=== PATIENT | female | born 1980 | race Caucasian/White ===

== ENCOUNTER 2016-06-01 11:38 | Emergency (ER) | payer OTHER ==
[~2016-06-01] VITALS: Ht 154.9 cm; Wt 68.0 kg
[~2016-06-01 11:38] MED LIST: ACET-2267 PO; AMOX-358 PO; DOCU-143 PO; DOXY100C2 PO; FAMO-119 PO; HYDR-34 PO; HYDR-3812 PO; HYDR1TAB PO; HYDROCODON PO; HYOS0.1281 PO; IBUP-2055 PO; IBUPROFEN PO; LISI-552 PO; LISI20TA PO; NAPR-243 PO; NAPR550T PO; ONDAN4ODT PO; PANT40TA2 PO; PANT40TA3 PO; PENI500T PO; PNT40TEC PO; SUCR1TAB PO; SUCR1TAB36 PO; SULF1TAB38 PO; TRAM50TA2 PO; TRM50T PO
[2016-06-01] MEDS ORDERED: OMEP20CA12 PO (12:07)
[2016-06-01] MEDS ORDERED: ONDANSETRON 4 MG (ZOFRAN) ORAL DISSOLVE TAB ONE (12:15)
[2016-06-01] MEDS ORDERED: ONDANSETRON 8 MG (ZOFRAN) ORAL DISSOLVE TAB PO ONE (12:30)
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
[2016-06-01] MEDS ORDERED: AUGMENTIN 875 MG TAB (AMOXICILLIN/CLAVULANATE) PO SCH (13:00)
[2016-06-01] MEDS ORDERED: LIDOCAINE 2% 20 ML (XYLOCAINE) VIAL INJ ONE (13:00)
[2016-06-01] MEDS ORDERED: TRIM/SULFAMETH 160/800 (SEPTRA DS) TAB PO ONE (13:00)
[2016-06-01] MEDS ORDERED: HYDROcodone/APAP 5 MG/325 MG (LORTAB) TAB PO ONE (13:00)
[2016-06-01] MEDS ORDERED: SULF1TAB35 PO (13:09)
[2016-06-01] MEDS ORDERED: HYDR-757 PO (13:09)
[2016-06-01] MEDS ORDERED: AMOX500C2 PO (13:09)
[2016-06-01 13:10] VITALS: BP 128/66
[2016-06-02] MEDS ORDERED: AMOX500C2 PO (10:23)
[2016-06-02] MEDS ORDERED: LISI1TAB6 PO (10:23)
[2016-06-02] MEDS ORDERED: OMEP20TA7 PO (10:23)
[2016-06-02] MEDS ORDERED: ACET-93 PO (10:23)
[2016-06-02] MEDS ORDERED: SULF1TAB35 PO (10:23)
[2016-06-02] MEDS ORDERED: IBUP-2055 PO (10:23)
== END 2016-06-01 13:10 | disposition home or self-care (01) ==
LOC: EDUNIT# 11:38 → ER 11:40
DX: N76.2 Acute vulvitis (principal); I10 Essential (primary) hypertension; F17.210 Nicotine dependence, cigarettes, uncomplicated; Z79.899 Other long term (current) drug therapy
CPT/HCPCS: 99283

== ENCOUNTER 2016-06-02 06:54 | Inpatient (IN) | payer OTHER ==
[~2016-06-02] VITALS: Ht 154.9 cm; Wt 73.0 kg
[~2016-06-02 06:54] MED LIST changes: +AMOX500C2 PO; +HYDR-757 PO; +OMEP20CA12 PO; +SULF1TAB35 PO
[2016-06-02] MEDS ORDERED: KETOROLAC 30 MG/ML VIAL IVP STA (07:16)
[2016-06-02] MEDS ORDERED: fentaNYL INJECTION 100 MCG/2 ML AMP IVP STA (07:16)
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
[2016-06-02 07:50] LABS: BASOPHILS % (AUTO) 0 % (0-10); EOSINOPHILS # (AUTO) 0.2 10^3/uL (0.0-0.3); EOSINOPHILS % (AUTO) 1 % (0-10); LYMPHOCYTES % (AUTO) 10 % (12-44); MEAN CORPUSCULAR HEMOGLOBIN 26 PG (25-34); MEAN CORPUSCULAR HGB CONC 34 G/DL (32-36); MEAN CORPUSCULAR VOLUME 78 FL (80-99); MEAN PLATELET VOLUME 8.1 FL (7.4-10.4); MONOCYTES # (AUTO) 2.2 X 10^3 (0.0-1.0); MONOCYTES % (AUTO) 11 % (0-12); NEUTROPHILS # (AUTO) 16.2 X 10^3 (1.8-7.8); NEUTROPHILS % (AUTO) 79 % (42-75); PLATELET COUNT 360 10^3/uL (130-400); RED BLOOD COUNT 3.53 10^6/uL (4.35-5.85); RED CELL DISTRIBUTION WIDTH 14.7 % (10.0-14.5); WHITE BLOOD COUNT 20.6 10^3/uL (4.3-11.0)
[2016-06-02] MEDS ORDERED: HYDROmorphone (DILAUDID) 2 MG/ML VIAL IVP STA (08:10)
[2016-06-02 08:12] LABS: BAND NEUTROPHILS 5 %; LYMPHOCYTES % (MANUAL) 11 %; NEUTROPHILS % (MANUAL) 76 %
[2016-06-02 08:21] LABS: ALANINE AMINOTRANSFERASE 51 U/L (0-55); ALBUMIN 3.8 G/DL (3.2-4.5); ANION GAP 11 MMOL/L (5-14); ASPARTATE AMINO TRANSFERASE 28 U/L (5-34); BILIRUBIN,TOTAL 0.2 MG/DL (0.1-1.0); BLOOD UREA NITROGEN 23 MG/DL (7-18); BUN/CREATININE RATIO 27; CALCIUM 8.8 MG/DL (8.5-10.1); CARBON DIOXIDE 17 MMOL/L (21-32); CHLORIDE 104 MMOL/L (98-107); CREATININE SERUM 0.85 MG/DL (0.60-1.30); GFR ESTIMATED > 60; GLUCOSE 101 MG/DL (70-105); POTASSIUM 3.8 MMOL/L (3.6-5.0); SODIUM 132 MMOL/L (135-145); TOTAL PROTEIN 7.2 G/DL (6.4-8.2)
[2016-06-02 08:39] LABS: KETONES,URINE NEGATIVE (NEGATIVE); LEUKOCYTE ESTERASE ,URINE 2+ (NEGATIVE); NITRITE,URINE NEGATIVE (NEGATIVE); PH,URINE 8 (5-9); PROTEIN,URINE NEGATIVE (NEGATIVE); UROBILINOGEN,URINE 1 MG/DL (NORMAL)
[2016-06-02] MEDS ORDERED: cefTRIAXone INJECTION 1,000 MG in NORMAL SALINE (BAXTER MINI) 50 ML IV ONE (08:45)
[2016-06-02 09:04] LABS: BILIRUBIN,URINE 1+ (NEGATIVE); TRICHOMONAS,URINE MODERATE /HPF
[2016-06-02] MEDS ORDERED: NS IV 1000 ML 1,000 ML IV ONE (09:23)
[2016-06-02] MEDS ORDERED: metroNIDAZOLE 500 MG (FLAGYL) TAB PO ONE (10:00)
[2016-06-02 10:15] VITALS: BP 95/54
[2016-06-02] MEDS ORDERED: metroNIDAZOLE 500 MG (FLAGYL) TAB PO NR (10:15)
[2016-06-02] MEDS ORDERED: VANCOMYCIN 1500 MG/NS 500 ML IVPB IV NR ×2 (10:21)
[2016-06-02] MEDS ORDERED: OMEP20TA7 PO (10:23)
[2016-06-02] MEDS ORDERED: SULF1TAB35 PO (10:23)
[2016-06-02] MEDS ORDERED: ACET-93 PO (10:23)
[2016-06-02] MEDS ORDERED: AMOX500C2 PO (10:23)
[2016-06-02] MEDS ORDERED: IBUP-2055 PO (10:23)
[2016-06-02] MEDS ORDERED: LISI1TAB6 PO (10:23)
--- NOTE | 2016-06-02 10:34 | History & Physicial (CHS) ---
HPI History of Present Illness: This is a 35 yo female who reports that she noticed a lump in the L labia on . Prior to that she had shaved near the urethral opening. When she noticed the lump she attempted to squeeze it and felt as if it "popped on the inside". She denies any drainage. She was seen in the ER yesterday with mild edema to the L labia and was given an rx for Bactrim, she was not able to start them until today and has had signficiant increase in erythema and swelling of the L labia now up into the mons and L groin. Pt reports fever at home as well as onset of nausea for the past day. Pt has hx of IVDU and has poor venous access. Pt noted to have Trich on UA. Source: patient Date seen by provider: Jun 02, 2016 Time seen by provider: 10:00 Attending Physician Robson Oneal DO PCP [place],[facility] Date of Admission Jun 02, 2016 at 09:29 Home Medications Home Medications Reviewed patient Home Medication Reconciliation Form Allergies Coded Allergies: No Known Drug Allergies (Verified , 09/02/15) FPC-Fneinw-Nwhptg Hx Patient Social History Alcohol Use: Denies Use Recreational Drug Use: Yes (OXY AND MORPHINE) Drug of Choice: OXY, MORPHINE AND PERCOCET Smoking Status: Current Everyday Smoker Type Used: Cigarettes Recent Foreign Travel: No Contact w/other who traveled: No Recent Infectious Disease Expo: No Physical Abuse Screen: No Sexual Abuse: No Immunizations Up To Date Tetanus Booster (TDap): More than 5yrs Past Medical History PMHx: Hypothyroidism Hypertension Polysubstance abuse Hepatitis C PSurgHx: Partial thyroidectomy Exploratory laparotomy with repair of gastric perforation Family Medical History Family History: Arthritis 19 MOTHER Cardiovascular disease 19 FATHER Congenital disease G8 SISTER Diabetes mellitus 19 MOTHER Hypertension 19 FATHER Seizure disorder G8 SISTER Review of Systems (CHC) Constitutional: see HPI All Other Systems Reviewed Negative Unless Noted: Yes Reviewed Test Results Reviewed Test Results Lab Laboratory Tests 06/02/16 07:40: Alanine Aminotransferase (ALT/SGPT) 51, Albumin 3.8, Alkaline Phosphatase 79, Anion Gap 11, Aspartate Amino Transf (AST/SGOT) 28, BUN/Creatinine Ratio 27, Band Neutrophils 5, Basophils # (Auto) 0.0, Basophils (%) (Auto) 0, Blood Morphology Comment NORMAL, Blood Urea Nitrogen 23H, Calcium Level 8.8, Carbon Dioxide Level 17L, Chloride Level 104, Creatinine 0.85, Eosinophils # (Auto) 0.2 , Eosinophils (%) (Auto) 1, Estimat Glomerular Filtration Rate > 60, Glucose Level 101, Hematocrit 28L, Hemoglobin 9.2L, Lymphocytes # (Auto) 2.0, Lymphocytes % (Manual) 11, Lymphocytes (%) (Auto) 10L, Mean Corpuscular Hemoglobin 26, Mean Corpuscular Hemoglobin Concent 34, Mean Corpuscular Volume 78L, Mean Platelet Volume 8.1, Monocytes # (Auto) 2.2H, Monocytes % (Manual) 8, Monocytes (%) (Auto) 11, Neutrophils # (Auto) 16.2H, Neutrophils % (Manual) 76, Neutrophils (%) (Auto) 79H, Platelet Count 360, Potassium Level 3.8, Red Blood Count 3.53L, Red Cell Distribution Width 14.7H, Sodium Level 132L, Total Bilirubin 0.2, Total Protein 7.2, White Blood Count 20.6H 06/02/16 08:25: Urine Bacteria TRACE, Urine Bilirubin 1+H, Urine Casts NONE, Urine Clarity CLEAR , Urine Color YELLOW, Urine Crystals NONE, Urine Culture Indicated NO, Urine Glucose (UA) NEGATIVE, Urine Ketones NEGATIVE, Urine Leukocyte Esterase 2+H, Urine Mucus NEGATIVE, Urine Nitrite NEGATIVE, Urine Protein NEGATIVE, Urine RBC NONE, Urine RBC (Auto) 1+H, Urine Specific [place] 1.010L, Urine Squamous Epithelial Cells 5-10, Urine Trichomonas MODERATEH, Urine Urobilinogen 1, Urine WBC 2-5, Urine pH 8 06/02/16 08:53: Lactic Acid Level 0.9 Physical Exam-([facility]) Physical Exam Vital Signs VS - Last 72 Hours, by Label 06/02/16 06/02/16 06/02/16 06/02/16 07:16 07:41 07:41 08:27 Temp 99.1 99.1 99.1 99.1 Pulse 117 Resp 18 B/P 118/75 Pulse Ox 98 Capillary Refill : Less Than 3 Seconds General Appearance: WD/WN no apparent distress Respiratory: lungs clear Cardiovascular: regular rate, rhythm Gastrointestinal: non tender soft Genital/Rectal: other (significant swelling and induration noted to the L labia, mild swelling to the R labia, swelling and induration extends into the mons and L inguinal area; no area of fluctuance or lesion noted, no significant swelling into the vagina noted) Assessment/Plan Assessment/Plan Plan see plan under problems Diagnosis/Problems: (1) Cellulitis of labia majora Assessment & Plan: ADM 06/02/15 - start IV Vancomycin, needs PICC line due to poor venous access - will obtain CT of the pelvis to eval for drainable abscess and consult Nurse Discharge if needed for I&D (2) Sepsis Qualifiers: Qualified Code: A41.9 - Sepsis, unspecified organism Assessment & Plan: Meets sepsis criteria w/ leukocytosis, tachycardia and recent fever - lactic acid 0.9 - blood cultures pending (3) Trichomoniasis, urogenital Assessment & Plan: Noted in urine - tx w/ Flagyl 2000mg po x1 ROBSON ONEAL DO Jun 02, 2016 10:34
[2016-06-02] MEDS ORDERED: FLU TRIvalent (5 YOA+) 2016-17 (AFLURIA) 0.5 ML IM ONE (11:00)
[2016-06-02] MEDS: fentaNYL INJECTION 100 MCG/2 ML AMP IVP PRN ×5 (11:01→23:21)
[2016-06-02] MEDS: NS IV 1000 ML 1,000 ML IV SCH ×3 (11:04→23:20)
[2016-06-02 12:00] VITALS: BP 90/55
--- NOTE | 2016-06-02 12:49 | Diagnostic Imaging Report ---
INDICATION: PICC line placement. Portable chest 12:37 PM. Right upper extremity PICC line tip projects over the SVC. Heart size and pulmonary vascularity are normal. Lungs are clear. There are no effusions or pneumothoraces. IMPRESSION: No acute abnormalities in the chest. Dictated by: Dictated on workstation # [id number]
[2016-06-02] MEDS ORDERED: NS 100 ML (IVPB) BAG IV ONE (13:15)
[2016-06-02] MEDS ORDERED: IOHEXOL 350 MG/ML 100 ML (OMNIPAQUE 350) VIAL IV ONE (13:15)
[2016-06-02] MEDS: ACETAMINOPHEN 500 MG TAB (TYLENOL) PO PRN ×2 (14:18→23:20)
--- NOTE | 2016-06-02 14:22 | Diagnostic Imaging Report ---
PROCEDURE: CT pelvis with contrast. TECHNIQUE: Oral and intravenous contrast were administered with pelvic CT performed. INDICATION: Labial cellulitis. EXAM: CT pelvis with contrast. FINDINGS: There is edema in the subcutaneous fat in the mons pubis extending into the left labial region. There are small inguinal reactive lymph nodes bilaterally. There is no discrete abscess seen. The urinary bladder is distended. The uterus is not enlarged. It is mildly displaced to the left by the distended bladder. There is a trace amount of free fluid in the cul-de-sac. IMPRESSION: Cellulitis in the left labial and mons pubis regions of the pelvis with adjacent reactive lymphadenopathy. No evidence for abscess. Dictated by: Dictated on workstation # [id number]
[2016-06-02 15:45] VITALS: BP 100/66
[2016-06-02] MEDS: NICOTINE 14 MG (NICODERM) PATCH TD SCH (17:04)
[2016-06-02 19:54] VITALS: BP 102/59
[2016-06-02] MEDS: IBUPROFEN 600 MG (MOTRIN) TAB PO PRN (20:01)
[2016-06-02] MEDS: ONDANSETRON 4 MG/2 ML (SDV) Z0FRAN IVP PRN (22:10)
[2016-06-02] MEDS: VANCOMYCIN IV ADD-VANTAGE 1,000 MG in SODIUM CHLORIDE (ADD-VANTAGE) 250 ML IV SCH (23:15)
[2016-06-03] VITALS: BP 94/57
[2016-06-03] MEDS: fentaNYL INJECTION 100 MCG/2 ML AMP IVP PRN ×9 (01:54→22:30)
[2016-06-03 04:00] VITALS: BP 98/62
[2016-06-03] MEDS: IBUPROFEN 600 MG (MOTRIN) TAB PO PRN ×2 (04:55→21:07)
[2016-06-03 05:26] LABS: BASOPHILS % (AUTO) 0 % (0-10); EOSINOPHILS # (AUTO) 0.4 10^3/uL (0.0-0.3); EOSINOPHILS % (AUTO) 3 % (0-10); LYMPHOCYTES % (AUTO) 17 % (12-44); MEAN CORPUSCULAR HEMOGLOBIN 26 PG (25-34); MEAN CORPUSCULAR HGB CONC 33 G/DL (32-36); MEAN CORPUSCULAR VOLUME 79 FL (80-99); MEAN PLATELET VOLUME 8.5 FL (7.4-10.4); MONOCYTES # (AUTO) 1.1 X 10^3 (0.0-1.0); MONOCYTES % (AUTO) 10 % (0-12); NEUTROPHILS # (AUTO) 7.9 X 10^3 (1.8-7.8); NEUTROPHILS % (AUTO) 70 % (42-75); PLATELET COUNT 276 10^3/uL (130-400); RED BLOOD COUNT 3.03 10^6/uL (4.35-5.85); RED CELL DISTRIBUTION WIDTH 14.8 % (10.0-14.5); WHITE BLOOD COUNT 11.3 10^3/uL (4.3-11.0)
[2016-06-03 05:45] LABS: ALANINE AMINOTRANSFERASE 34 U/L (0-55); ALBUMIN 2.9 G/DL (3.2-4.5); ANION GAP 5 MMOL/L (5-14); ASPARTATE AMINO TRANSFERASE 20 U/L (5-34); BILIRUBIN,TOTAL < 0.1 MG/DL (0.1-1.0); BLOOD UREA NITROGEN 19 MG/DL (7-18); BUN/CREATININE RATIO 24; CARBON DIOXIDE 19 MMOL/L (21-32); CHLORIDE 112 MMOL/L (98-107); CREATININE SERUM 0.79 MG/DL (0.60-1.30); GFR ESTIMATED > 60; GLUCOSE 88 MG/DL (70-105); SODIUM 136 MMOL/L (135-145); TOTAL PROTEIN 5.5 G/DL (6.4-8.2)
[2016-06-03 06:00] LABS: ANISOCYTOSIS SLIGHT; BAND NEUTROPHILS 0 %; BASOPHILS % (MANUAL) 0 %; EOSINOPHILS % (MANUAL) 0 %; HYPOCHROMASIA SLIGHT; LYMPHOCYTES % (MANUAL) 20 %; MICROCYTOSIS SLIGHT; NEUTROPHILS % (MANUAL) 74 %
[2016-06-03] MEDS: NS IV 1000 ML 1,000 ML IV SCH ×3 (07:00→21:57)
[2016-06-03] MEDS: NICOTINE 14 MG (NICODERM) PATCH TD SCH (08:09)
[2016-06-03] MEDS: NICOTINE PATCH REMOVAL TP SCH (08:09)
[2016-06-03] MEDS: ONDANSETRON 4 MG/2 ML (SDV) Z0FRAN IVP PRN ×2 (08:17→21:07)
[2016-06-03 08:33] VITALS: BP 100/58
[2016-06-03] MEDS: ACETAMINOPHEN 500 MG TAB (TYLENOL) PO PRN (11:34)
[2016-06-03] MEDS: VANCOMYCIN IV ADD-VANTAGE 1,000 MG in SODIUM CHLORIDE (ADD-VANTAGE) 250 ML IV SCH ×2 (12:15→23:03)
--- NOTE | 2016-06-03 12:37 | Progress Note (SOAP) ---
Subjective Subjective/Events-last exam No fever since admission, wbc improved. Pt feels swelling is mildly worse. Date seen by provider: Jun 03, 2016 Time seen by provider: 12:24 Objective Exam Last Set of Vital Signs Vital Signs Date Time Temp Pulse Resp B/P Pulse Ox O2 Delivery O2 Flow Rate FiO2 06/03/16 10:40 96.4 06/03/16 08:33 92 20 100/58 98 Room Air Capillary Refill : Less Than 3 Seconds I&O Bad tableGeneral: Alert, Oriented X3, Cooperative Neuro: Other (no significant change, margin of erythema extending slightly beyond marked borders) Results/Procedures Lab Laboratory Tests 06/03/16 05:00: Alanine Aminotransferase (ALT/SGPT) 34, Albumin 2.9L, Alkaline Phosphatase 74, Anion Gap 5, Anisocytosis SLIGHT, Aspartate Amino Transf (AST/SGOT) 20, BUN/ Creatinine Ratio 24, Band Neutrophils 0, Basophils # (Auto) 0.0, Basophils % ( Manual) 0, Basophils (%) (Auto) 0, Blood Urea Nitrogen 19H, Calcium Level 8.0L, Carbon Dioxide Level 19L, Chloride Level 112H, Creatinine 0.79, Eosinophils # ( Auto) 0.4H, Eosinophils % (Manual) 0, Eosinophils (%) (Auto) 3, Estimat Glomerular Filtration Rate > 60, Glucose Level 88, Hematocrit 24L, Hemoglobin 7.8L, Hypochromasia SLIGHT, Lymphocytes # (Auto) 2.0, Lymphocytes % (Manual) 20 , Lymphocytes (%) (Auto) 17, Mean Corpuscular Hemoglobin 26, Mean Corpuscular Hemoglobin Concent 33, Mean Corpuscular Volume 79L, Mean Platelet Volume 8.5, Microcytosis SLIGHT, Monocytes # (Auto) 1.1H, Monocytes % (Manual) 6, Monocytes (%) (Auto) 10, Neutrophils # (Auto) 7.9H, Neutrophils % (Manual) 74, Neutrophils (%) (Auto) 70, Platelet Count 276, Potassium Level 4.0, Red Blood Count 3.03L, Red Cell Distribution Width 14.8H, Sodium Level 136, Total Bilirubin < 0.1L, Total Protein 5.5L, White Blood Count 11.3H Assessment/Plan Assessment/Plan Plan see plan under problems Diagnosis/Problems: (1) Cellulitis of labia majora Assessment & Plan: ADM 06/02/15 - start IV Vancomycin, needs PICC line due to poor venous access - will obtain CT of the pelvis to eval for drainable abscess and consult Certified Nuclear Medicine Technologist if needed for I&D 06/03 - wbc improved to 11.3, afebrile, no evidence of abscess on CT - continue Vanc (2) Sepsis Qualifiers: Qualified Code: A41.9 - Sepsis, unspecified organism Assessment & Plan: Meets sepsis criteria w/ leukocytosis, tachycardia and recent fever - lactic acid 0.9 - blood cultures pending Improved (3) Trichomoniasis, urogenital Assessment & Plan: Noted in urine - tx w/ Flagyl 2000mg po x1 (4) Anemia Qualifiers: Qualified Code: D50.9 - Iron deficiency anemia, unspecified Assessment & Plan: Microcytic c/w iron deficiency 06/03 - start ferrous sulfate 325mg BID Clinical Quality Measures DVT/VTE Risk/Contraindication: Risk Factor Score Per Nursin RFS Level Per Nursing on Admit: 1=Low/No VTE PPX ROBSON ONEAL DO Jun 03, 2016 12:37
[2016-06-03 12:46] VITALS: BP 103/62
[2016-06-03] MEDS: HYDROcodone/APAP 5 MG/325 MG (LORTAB) TAB PO PRN ×3 (14:07→22:31)
[2016-06-03 16:00] VITALS: BP 105/62
[2016-06-03] MEDS: FERROUS SULF 325 MG (IRON) TAB PO SCH (17:39)
[2016-06-03 20:00] VITALS: BP 103/63
[2016-06-04] VITALS: BP 102/67
[2016-06-04 04:00] VITALS: BP 103/56
[2016-06-04] MEDS: HYDROcodone/APAP 5 MG/325 MG (LORTAB) TAB PO PRN ×3 (04:27→20:07)
[2016-06-04] MEDS: fentaNYL INJECTION 100 MCG/2 ML AMP IVP PRN ×6 (04:27→21:38)
[2016-06-04 05:42] LABS: BASOPHILS % (AUTO) 0 % (0-10); EOSINOPHILS # (AUTO) 0.5 10^3/uL (0.0-0.3); EOSINOPHILS % (AUTO) 5 % (0-10); LYMPHOCYTES # (AUTO) 2.3 X 10^3 (1.0-4.0); LYMPHOCYTES % (AUTO) 25 % (12-44); MEAN CORPUSCULAR HEMOGLOBIN 26 PG (25-34); MEAN CORPUSCULAR HGB CONC 33 G/DL (32-36); MEAN CORPUSCULAR VOLUME 79 FL (80-99); MEAN PLATELET VOLUME 8.3 FL (7.4-10.4); MONOCYTES # (AUTO) 0.9 X 10^3 (0.0-1.0); MONOCYTES % (AUTO) 10 % (0-12); NEUTROPHILS # (AUTO) 5.7 X 10^3 (1.8-7.8); NEUTROPHILS % (AUTO) 61 % (42-75); PLATELET COUNT 315 10^3/uL (130-400); RED BLOOD COUNT 2.98 10^6/uL (4.35-5.85); RED CELL DISTRIBUTION WIDTH 15.1 % (10.0-14.5); WHITE BLOOD COUNT 9.4 10^3/uL (4.3-11.0)
[2016-06-04 05:57] LABS: ANION GAP 6 MMOL/L (5-14); BLOOD UREA NITROGEN 13 MG/DL (7-18); BUN/CREATININE RATIO 18; CALCIUM 8.3 MG/DL (8.5-10.1); CARBON DIOXIDE 18 MMOL/L (21-32); CHLORIDE 112 MMOL/L (98-107); CREATININE SERUM 0.73 MG/DL (0.60-1.30); GFR ESTIMATED > 60; GLUCOSE 109 MG/DL (70-105); SODIUM 136 MMOL/L (135-145)
[2016-06-04 06:28] LABS: BAND NEUTROPHILS 6 %; EOSINOPHILS % (MANUAL) 4 %; LYMPHOCYTES % (MANUAL) 24 %; NEUTROPHILS % (MANUAL) 61 %
[2016-06-04] MEDS: FERROUS SULF 325 MG (IRON) TAB PO SCH ×2 (06:32→17:09)
[2016-06-04] MEDS: NS IV 1000 ML 1,000 ML IV SCH ×4 (06:36→22:25)
[2016-06-04] MEDS: NICOTINE 14 MG (NICODERM) PATCH TD SCH (07:52)
[2016-06-04] MEDS: ONDANSETRON 4 MG/2 ML (SDV) Z0FRAN IVP PRN ×2 (07:57→19:15)
[2016-06-04] MEDS: ACETAMINOPHEN 500 MG TAB (TYLENOL) PO PRN (08:04)
[2016-06-04 08:46] VITALS: BP 105/59
[2016-06-04] MEDS: NICOTINE PATCH REMOVAL TP SCH (09:12)
[2016-06-04] MEDS ORDERED: TROUGH ORDER-PHARMACY XX NR (10:00)
--- NOTE | 2016-06-04 10:47 | Progress Note (SOAP) ---
Subjective Subjective/Events-last exam Showing some improvement. WBC continues to trend down. Afeb since admission. Pain better controlled w/ hydrocodone. Date seen by provider: Jun 04, 2016 Time seen by provider: 10:45 Objective Exam Last Set of Vital Signs Vital Signs Date Time Temp Pulse Resp B/P Pulse Ox O2 Delivery O2 Flow Rate FiO2 06/04/16 08:46 96.8 79 20 105/59 98 Room Air Capillary Refill : Less Than 3 Seconds I&O Intake and Output 06/04/16 00:00 Intake Total 5020 ml Output Total 3150 ml Balance 1870 ml Intake Oral 2520 ml IV Total 2500 ml Output Urine Total 3150 ml # Voids 4 # Bowel Movements 1 General: Alert, Oriented X3, Cooperative Skin: Other (less induration in the mons area) Psych/Mental Status: Mood NL Results/Procedures Lab Laboratory Tests 06/04/16 05:20: Anion Gap 6, BUN/Creatinine Ratio 18, Band Neutrophils 6, Basophils # (Auto) 0.0 , Basophils (%) (Auto) 0, Blood Morphology Comment NORMAL, Blood Urea Nitrogen 13, Calcium Level 8.3L, Carbon Dioxide Level 18L, Chloride Level 112H, Creatinine 0.73, Eosinophils # (Auto) 0.5H, Eosinophils % (Manual) 4, Eosinophils (%) (Auto) 5, Estimat Glomerular Filtration Rate > 60, Glucose Level 109H, Hematocrit 24L, Hemoglobin 7.7L, Lymphocytes # (Auto) 2.3, Lymphocytes % (Manual) 24, Lymphocytes (%) (Auto) 25, Mean Corpuscular Hemoglobin 26, Mean Corpuscular Hemoglobin Concent 33, Mean Corpuscular Volume 79L, Mean Platelet Volume 8.3, Monocytes # (Auto) 0.9, Monocytes % (Manual) 5, Monocytes (%) (Auto) 10, Neutrophils # (Auto) 5.7, Neutrophils % (Manual) 61, Neutrophils (%) (Auto) 61, Platelet Count 315, Potassium Level 4.0, Red Blood Count 2.98L, Red Cell Distribution Width 15.1H, Sodium Level 136, White Blood Count 9.4 06/04/16 10:25: Microbiology 06/02/16 Blood Culture - Preliminary, Resulted No growth Assessment/Plan Assessment/Plan Plan see plan under problems Diagnosis/Problems: (1) Cellulitis of labia majora Assessment & Plan: ADM 06/02/15 - start IV Vancomycin, needs PICC line due to poor venous access - will obtain CT of the pelvis to eval for drainable abscess and consult Tufter Operator if needed for I&D 06/03 - wbc improved to 11.3, afebrile, no evidence of abscess on CT - continue Vanc 06/04 - wbc 9.4 no shift; blood cultures negative; clinically improving - continue same (2) Sepsis Qualifiers: Qualified Code: A41.9 - Sepsis, unspecified organism Assessment & Plan: Meets sepsis criteria on admission w/ leukocytosis, tachycardia and recent fever - lactic acid 0.9 - blood cultures pending Improved (3) Trichomoniasis, urogenital Assessment & Plan: Noted in urine - tx w/ Flagyl 2000mg po x1 (4) Anemia Qualifiers: Qualified Code: D50.9 - Iron deficiency anemia, unspecified Assessment & Plan: Microcytic c/w iron deficiency 06/03 - start ferrous sulfate 325mg BID Clinical Quality Measures DVT/VTE Risk/Contraindication: Risk Factor Score Per Nursin RFS Level Per Nursing on Admit: 1=Low/No VTE PPX ROBSON ONEAL DO Jun 04, 2016 10:47
[2016-06-04] MEDS: VANCOMYCIN IV ADD-VANTAGE 1,000 MG in SODIUM CHLORIDE (ADD-VANTAGE) 250 ML IV SCH ×2 (12:00→22:26)
[2016-06-04 16:00] VITALS: BP 122/78
[2016-06-04] MEDS: IBUPROFEN 600 MG (MOTRIN) TAB PO PRN (19:18)
[2016-06-05] VITALS: BP 129/73
[2016-06-05] MEDS: HYDROcodone/APAP 5 MG/325 MG (LORTAB) TAB PO PRN ×3 (01:16→10:04)
[2016-06-05] MEDS: fentaNYL INJECTION 100 MCG/2 ML AMP IVP PRN ×2 (02:37→06:34)
[2016-06-05] MEDS: IBUPROFEN 600 MG (MOTRIN) TAB PO PRN ×2 (04:08→11:13)
[2016-06-05] MEDS: NS IV 1000 ML 1,000 ML IV SCH ×2 (04:32→09:12)
[2016-06-05 05:30] LABS: BASOPHILS % (AUTO) 0 % (0-10); EOSINOPHILS # (AUTO) 0.5 10^3/uL (0.0-0.3); EOSINOPHILS % (AUTO) 6 % (0-10); LYMPHOCYTES # (AUTO) 2.5 X 10^3 (1.0-4.0); LYMPHOCYTES % (AUTO) 30 % (12-44); MEAN CORPUSCULAR HEMOGLOBIN 26 PG (25-34); MEAN CORPUSCULAR HGB CONC 33 G/DL (32-36); MEAN CORPUSCULAR VOLUME 79 FL (80-99); MEAN PLATELET VOLUME 8.2 FL (7.4-10.4); MONOCYTES % (AUTO) 12 % (0-12); NEUTROPHILS # (AUTO) 4.4 X 10^3 (1.8-7.8); NEUTROPHILS % (AUTO) 52 % (42-75); PLATELET COUNT 334 10^3/uL (130-400); WHITE BLOOD COUNT 8.4 10^3/uL (4.3-11.0)
[2016-06-05 05:54] LABS: BAND NEUTROPHILS 2 %; EOSINOPHILS % (MANUAL) 1 %; LYMPHOCYTES % (MANUAL) 41 %; NEUTROPHILS % (MANUAL) 52 %
[2016-06-05] MEDS: FERROUS SULF 325 MG (IRON) TAB PO SCH (06:34)
[2016-06-05 08:00] VITALS: BP 112/76
[2016-06-05] MEDS: NICOTINE PATCH REMOVAL TP SCH (08:59)
[2016-06-05] MEDS: NICOTINE 14 MG (NICODERM) PATCH TD SCH (09:00)
[2016-06-05] MEDS ORDERED: HYDR-3812 PO (10:06)
[2016-06-05] MEDS ORDERED: SULF1TAB35 PO (10:06)
--- NOTE | 2016-06-05 10:12 | Discharge Summary ---
Diagnosis/Chief Complaint Date of Admission Jun 02, 2016 at 09:29 Date of Discharge 06/05/2016 Admission Diagnosis Admission Diagnosis Labia cellulitis Sepsis Trichomonal Vaginalis Iron Deficiency Anemia Discharge Diagnosis See Above Chief Complaint/HPI Chief Complaint/HPI This is a 35 yo female who reports that she noticed a lump in the L labia on . Prior to that she had shaved near the urethral opening. When she noticed the lump she attempted to squeeze it and felt as if it "popped on the inside". She denies any drainage. She was seen in the ER yesterday with mild edema to the L labia and was given an rx for Bactrim, she was not able to start them until today and has had signficiant increase in erythema and swelling of the L labia now up into the mons and L groin. Pt reports fever at home as well as onset of nausea for the past day. Pt has hx of IVDU and has poor venous access. Pt noted to have Trich on UA. Discharge Summary-Simple/Stand Procedures CT: did not show any drainable abscess Consultations Discharge Physical Examination Allergies: Coded Allergies: No Known Drug Allergies (Verified , 09/02/15) Vitals & I&Os Vital Sign - Last 12Hours Date Time Temp Pulse Resp B/P Pulse Ox O2 Delivery O2 Flow Rate FiO2 06/05/16 00:00 97.7 99 18 129/73 97 Room Air Intake and Output 06/05/16 00:00 Intake Total 4844 ml Output Total 2200 ml Balance 2644 ml General Appearance: Alert, Oriented X3, Cooperative, No Acute Distress HEENT: Atraumatic, PERRLA, EOMI, Mucous Memb Moist/[place] Respiratory: Clear to Auscultation, Normal Air Movement Cardiovascular: Regular Rate, Normal S1, Normal S2, No Murmurs Abdominal: Normal Bowel Sounds, Soft, No Tenderness, No Hepatosplenomegaly, No Masses Extremities: No Clubbing, No Cyanosis, No Edema, No Tenderness/Swelling Skin: Other (Erythema improved from marked lines, reduced swelling, still some tenderness with palpation) Neuro: Normal Gait, Normal Speech, Strength at 5/5 X4 Ext, Normal Tone, Sensation Intact, Cranial Nerves 3-12 NL Psych/Mental Status: Mental Status NL, Mood NL Hospital Course See final discharge diagnosis. Pending Labs None pending Discussion & Recommendations 35 yo F with labial abscess that was seen in ER multiple times with pain and cellulitis. She was unable to afford antibiotics and infection progressed and patient required several antibiotics. She was discharged on PO antibiotics. Antibiotics were vouchered at [facility] and patient has close follow up this week with Dr Carey to monitor infection. Discharge Condition at discharge Improved Instructions to patient/family Please see electonic discharge instructions given to patient. Discharge Medications Reviewed and agree with Discharge Medication list on patient's Discharge Instruction sheet Clinical Quality Measures DVT/VTE Risk/Contraindication: Risk Factor Score Per Nursin RFS Level Per Nursing on Admit: 1=Low/No VTE PPX GAB DRISCOLL MD Jun 05, 2016 10:12
--- NOTE | 2016-06-05 10:19 | Discharge Instructions ---
Discharge [facility] Discharge Medications New, Converted or Re-Newed RX: RX on Chart (Antibiotics sent to pharmacy) New Medications: Hydrocodone/Acetaminophen (Hydrocodon -Acetaminophen 5-325) 1 Each Tablet 1 TAB PO Q6H PRN MODERATE PAIN #20 TAB Changed Medications: Sulfamethoxazole/Trimethoprim (Bactrim Ds Tablet) 1 Each Tablet 1 TAB PO BID #20 TAB (Changed from: Removed Instructions) Continued Medications: Acetaminophen (Acetaminophen) 500 Mg Tablet 1000 MG PO Q6H TAKES 2 (500 MG) TABLETS PRN PAIN TAB Ibuprofen (Ibuprofen) 200 Mg Tablet 400 MG PO Q8H TAKES 2 (200 MG) TABLETS TAB Discontinued Medications: Amoxicillin (Amoxicillin) 500 Mg Capsule 500 MG PO TID FILLED 06/01/16 #30 FOR A 10 DAY THERAPY CAP Lisinopril/Hydrochlorothiazide (Lisinopril-Hctz 10-12.5 mg Tab) 1 Each Tablet 1 TAB PO DAILY LAST FILLED 03/15/16 #30 TAB Omeprazole (Omeprazole) 20 Mg Tablet. 20 MG PO DAILY TAB Patient Instructions Goal/Follow Up Appt: You have a follow up appointment with Dr Carey on Jun 2 @ 10 AM Patient Instructions: - It is very important that you take your antibiotics until they are gone - Warm salt water soaks twice per day until swelling is gone - Ok to use ice packs and heat to labial area to help with inflammation [facility] - Unable to tolerate antibiotics - Severe pain - Increase in swelling Activity & Diet Discharge Diet: No Restrictions Activity as Tolerated: Yes Copy Copies To 1: VIVI CARMEN MD, HOLLY R MD Jun 05, 2016 10:11
[2016-06-05] MEDS: VANCOMYCIN IV ADD-VANTAGE 1,000 MG in SODIUM CHLORIDE (ADD-VANTAGE) 250 ML IV SCH (11:12)
[2016-06-05 11:50] VITALS: BP 112/76
== END 2016-06-05 12:00 | disposition home or self-care (01) | DRG 872 ==
LOC: EDUNIT# 06:54 → ER 06:58 → 4TH 09:29
PROVIDERS: ADMIT Family Medicine; ATTEND Family Medicine
PROC: 02HV33Z Insertion of Infusion Device into Superior Vena Cava, Percutaneous Approach (ICD-10-PCS; principal; 2016-06-02)
DX: A41.9 Sepsis, unspecified organism (principal); N76.2 Acute vulvitis; L03.314 Cellulitis of groin; A59.00 Urogenital trichomoniasis, unspecified; D50.9 Iron deficiency anemia, unspecified; J45.909 Unspecified asthma, uncomplicated; I10 Essential (primary) hypertension; K21.9 Gastro-esophageal reflux disease without esophagitis; E03.9 Hypothyroidism, unspecified; F41.9 Anxiety disorder, unspecified; F17.210 Nicotine dependence, cigarettes, uncomplicated
CPT/HCPCS: 36415; 36569; 71010; 72193; 76937; 80048; 80053; 80202; 81000; 83605; 85007; 85027; 87040; 96365; 96375

== ENCOUNTER 2017-07-21 13:06 | Observation (INO) | payer SELFPAY ==
[~2017-07-21] VITALS: Ht 157.5 cm; Wt 81.4 kg
[2017-07-21] VITALS (20 sets, daily range): BP systolic 100–126; BP diastolic 56–89
[~2017-07-21 13:06] MED LIST changes: +ACET-93 PO; +ACHD5005 PO; -HYDR-3812 PO; +LISI1TAB6 PO; +OMEP20TA7 PO
--- OUTSIDE RECORDS SUMMARY | 2017-07-21 13:13 | XMS REPORT ---
Author Author JAI GRACE Organization [employer] Address Unknown Phone Unavailable Care Team Providers Care Basin Finish Operator Tig Welder Name Role Phone JAI GRACE CP Unavailable Allergies No Known Allergies Problems Problem Type Condition Code Onset Dates Condition Status Problem Unspecified essential hypertension 401.9 Active Problem Allergic rhinitis, cause unspecified 477.9 Active Problem Epigastric abdominal pain R10.13 Active Problem Other, mixed, or unspecified nondependent drug abuse, unspecified 305.90 Active Problem Depressive disorder, not elsewhere classified 311 Active Problem Unspecified hypothyroidism 244.9 Active Problem Unspecified viral hepatitis C without hepatic coma 070.70 Active Medications Medication Code System Code Instructions Start Date End Date Status Dosage Hydrocodone-Acetaminophen [facility] [address]-03 5-325 MG Orally every 4 hrs (#20 ) August 25, 2015 1 tablet as needed Protonix [facility] [address]-08 40 mg Orally twice a day (#60) August 25, 2015 1 tablet Sucralfate [facility] [address]-73 1 GM Orally 4 times a day (#120) August 25, 2015 1 tablet on an empty stomach Augmentin [facility] [address]-76 875-125 MG Orally every 12 hrs (#8 tabs) August 25, 2015 1 tablet Results No Known Results Summary Purpose [employer] Submission
--- OUTSIDE RECORDS SUMMARY | 2017-07-21 13:13 | XMS REPORT ---
Author Author DELANO MANNING [facility] In [facility] Address [address] [phone] Care Team Providers Care Blue Leather Sorter Name Role Phone DELANO MANNING Unavailable PROBLEMS Type Condition ICD9-CM Code [id number] Code Onset Dates Condition Status SNOMED Code Problem Major depressive disorder, recurrent, moderate F33.1 Aug, Active 29874342 Problem Anxiety disorder, unspecified F41.9 September, Active 155546908 Problem Personal history of peptic ulcer disease Z87.11 Aug, Active 607034438 Problem Attention-deficit hyperactivity disorder, predominantly inattentive type F90.0 September, Active 00989200 Problem Low back pain M54.5 September, Active 691839493 ALLERGIES No Information SOCIAL HISTORY Never Assessed PLAN OF CARE VITAL SIGNS MEDICATIONS Medication Instructions Dosage Frequency Start Date End Date Duration Status Doxycycline Hyclate 100 MG Orally every 12 hrs 1 capsule 12h 07 days Active RESULTS No Results PROCEDURES No Known procedures IMMUNIZATIONS No Known Immunizations MEDICAL (GENERAL) HISTORY Type Description Date Medical History HM-DEPRESSION Medical History Anxiety Medical History Add Medical History Drug addiction Surgical History Partial thyroidectomy Surgical History Bowel obstruction repair Surgical History 2 c section
--- OUTSIDE RECORDS SUMMARY | 2017-07-21 13:14 | XMS REPORT ---
Author Author MACY BARRIOS Organization [facility] Address [address] [place] [address] Care Team Providers Care Electromatic Typist Name Role Phone MACY BARRIOS Unavailable PROBLEMS Type Condition ICD9-CM Code [id number] Code Onset Dates Condition Status SNOMED Code Problem History of hyperthyroidism Z86.39 Active 943760761 Problem Essential hypertension I10 Active 73178602 Problem Depressive disorder F32.9 Active 27149613 Problem Ruptured, stomach K31.89 Active 09284830 Problem Hx SBO Z87.19 Active 958761242 Problem Chronic hepatitis C without hepatic coma B18.2 Active 561500863 Problem Drug abuse F19.10 Active 26101237 ALLERGIES No Known Allergies SOCIAL HISTORY Never Assessed PLAN OF CARE Activity Details Follow Up w PCP for CHM Reason: VITAL SIGNS Height 61 in 2016-06-14 Weight 149.8 lbs 2016-06-14 Temperature 98.5 degrees Fahrenheit 2016-06-14 Heart Rate 76 bpm 2016-06-14 Respiratory Rate 18 2016-06-14 BMI 28.30 kg/m2 2016-06-14 Blood pressure systolic 118 mmHg 2016-06-14 Blood pressure diastolic 82 mmHg 2016-06-14 MEDICATIONS Medication Instructions Dosage Frequency Start Date End Date Duration Status Ibuprofen 200 mg Orally every 8 hrs as needed 2 tablets Active Bactrim DS 800-160 MG Orally Twice a day 1 tablet 12h 30 May, 2016 Jun, Active Acetaminophen Extra Strength 500 MG Orally every 6 hrs 2 tablet as needed 6h Active Hydrocodone-Acetaminophen 5-325 MG Orally every 6 hrs 1 tablet as needed 6h Nov, Active RESULTS No Results PROCEDURES No Known procedures IMMUNIZATIONS No Known Immunizations MEDICAL (GENERAL) HISTORY Type Description Date Medical History Hyperthyroidism- resolved after partial thyroidectomy Medical History Hypertension Medical History Plysubstance abuse Medical History Hepatitis C Surgical History Partial thyroidectomy Surgical History Surgical History Exploratory laparotomy with repair of gastric perforation 04/21 Hospitalization History Partical thyroidectomy Hospitalization History Hospitalization History Perforated Abdominal Viscus 08/17/15 Hospitalization History Readmit for SBO 09/02/15 Hospitalization History Cellulitis 06/05/2016
--- OUTSIDE RECORDS SUMMARY | 2017-07-21 13:14 | XMS REPORT ---
Author Author RITA LYNCH [facility] e[employer] Address Unknown Phone Unavailable Care Team Providers Care Facilities Locator Name Role Phone RITA LYNCH CP Unavailable Allergies No Known Allergies Problems [...] C without hepatic coma 070.70 Active Medications No Known Medications Results No Known Results Summary Purpose [employer] Submission
--- OUTSIDE RECORDS SUMMARY | 2017-07-21 13:14 | XMS REPORT ---
Author Author DELANO MANNING [facility] In [facility] Address [address] [phone] Care Team Providers Care System Archive Analyst Name Role Phone DELANO MANNING Unavailable PROBLEMS Type Condition ICD9-CM Code [id number] Code Onset Dates Condition Status SNOMED Code Problem Major depressive disorder, recurrent, moderate F33.1 Aug, Active 94915770 Problem Anxiety disorder, unspecified F41.9 September, Active 153599753 Problem Personal history of peptic ulcer disease Z87.11 Aug, Active 342262695 Problem Attention-deficit hyperactivity disorder, predominantly inattentive type F90.0 September, Active 15681324 Problem Low back pain M54.5 September, Active 067812734 ALLERGIES Substance Reaction Event Type Date Status KNEE BRACE 08/31/2016 Drug Allergy Apr, Active SOCIAL HISTORY Never Assessed PLAN OF CARE Activity Details Follow Up prn Reason: VITAL SIGNS Weight 198 lbs 2017-04-10 Height 61 in 2017-04-10 BMI 37.41 kg/m2 2017-04-10 Temperature 97.5 degrees Fahrenheit 2017-04-10 Heart Rate 113 /min 2017-04-10 Oximetry 100 % 2017-04-10 Blood pressure systolic 146 mm Hg 2017-04-10 Blood pressure diastolic 90 mm Hg 2017-04-10 MEDICATIONS Medication Instructions Dosage Frequency Start Date End Date Duration Status Wellbutrin XL 300 MG 1 Tablet ER 24HR daily ORAL Active Omeprazole 20MG ORAL daily 1 24h Aug, Active Amitriptyline HCl 100 MG Orally Once a day at HS 1 tablet at HS 30 Active Doxycycline Hyclate 100 MG Orally every 12 hrs 1 capsule 12h 07 days Active Tylenol Extra Strength 500MG ORAL every 6 hours 1-2 6h September, Active Mobic 15 MG Orally Once a day 1 tablet 24h 30 day(s) Active Norel AD 4-10-325 MG Orally qid 1 6h 07 days Active Cyclobenzaprine HCl 10 MG Orally one tablet twice daily 1 tablet twice daily 30 Active RESULTS No Results PROCEDURES No Known procedures IMMUNIZATIONS No Known Immunizations MEDICAL (GENERAL) HISTORY Type Description Date Medical History HM-DEPRESSION Medical History Anxiety Medical History Add Medical History Drug addiction Surgical History Partial thyroidectomy Surgical History Bowel obstruction repair Surgical History 2 c section
--- OUTSIDE RECORDS SUMMARY | 2017-07-21 13:14 | XMS REPORT ---
Author Author VIVI CARMEN [facility] e[employer] Address Unknown Phone Unavailable Care Team Providers Care Ski Maker Wood Name Role Phone VIVI CARMEN CP Unavailable Allergies, Adverse Reactions, Alerts Substance Reaction Event Type N.K.D.A. Info Not Available Non Drug Allergy Problems Problem Type Condition Code Onset Dates Condition Status Assessment Generalized abdominal pain R10.84 Active Problem Chronic hepatitis C without hepatic coma B18.2 Active Problem Drug abuse F19.10 Active Problem Essential hypertension I10 Active Problem Hx SBO Z87.19 Active Problem History of hyperthyroidism Z86.39 Active Problem Depressive disorder F32.9 Active Problem Ruptured, stomach K31.89 Active Medications Medication Code System Code Instructions Start Date End Date Status Dosage Acetaminophen Extra Strength [facility] [address]-56 500 MG Orally every 6 hrs 2 tablet as needed Protonix [facility] [address]-27 40 mg Orally twice a day (#60) August 25, 2015 1 tablet Amitriptyline HCl [facility] [address]-64 25 MG Orally Once a day September 09, 2015 1 tablet Hydrocodone-Acetaminophen [facility] [address]-40 5-325 MG Orally every 6 hrs November 11, 2015 1 tablet as needed Sucralfate [facility] [address]-51 1 GM Orally 4 times a day (#120) August 25, 2015 1 tablet on an empty stomach Lisinopril-Hydrochlorothiazide [facility] [address]-15 10-12.5 MG Orally November 1 tablet by Oral route 1 time per day Procedures Procedure Coding System Code Date Office Visit, Est Pt., Level 3 CPT-4 10876 November 11, 2015 Vital Signs Date/Time: November 11, 2015 Cardiac Monitoring Heart Rate 78 bpm Weight 142 lbs Height 61 in Blood Pressure Diastolic 74 mmHg Blood Pressure Systolic 140 mmHg Results No Known Results Summary Purpose [employer]ClinicalWorks Submission
--- OUTSIDE RECORDS SUMMARY | 2017-07-21 13:14 | XMS REPORT ---
Author Author MACY BARRIOS Organization [facility] Address [address] [place] [address] Care Team Providers Care Agricultural Research Director Name Role Phone MACY BARRIOS Unavailable PROBLEMS Type Condition ICD9-CM Code [id number] Code Onset Dates Condition Status SNOMED Code Problem History of hyperthyroidism Z86.39 Active 557287747 Problem Essential hypertension I10 Active 15804176 Problem Depressive disorder F32.9 Active 87517559 Problem Ruptured, stomach K31.89 Active 46060203 Problem Hx SBO Z87.19 Active 754696229 Problem Chronic hepatitis C without hepatic coma B18.2 Active 766857900 Problem Drug abuse F19.10 Active 58860824 ALLERGIES No Known Allergies SOCIAL HISTORY No smoking Hx information available PLAN OF CARE VITAL SIGNS MEDICATIONS No Known Medications RESULTS No Results PROCEDURES No Known procedures IMMUNIZATIONS No Known Immunizations
--- OUTSIDE RECORDS SUMMARY | 2017-07-21 13:14 | XMS REPORT ---
Author Author DELANO MANNING [facility] In [facility] Address [address] [phone] Care Team Providers Care Lead Producer Name Role Phone DELANO MANNING Unavailable PROBLEMS Type Condition ICD9-CM Code [id number] Code Onset Dates Condition Status SNOMED Code Problem Major depressive disorder, recurrent, moderate F33.1 Aug, Active 55340696 Problem Anxiety disorder, unspecified F41.9 September, Active 881811738 Problem Personal history of peptic ulcer disease Z87.11 Aug, Active 923911501 Problem Attention-deficit hyperactivity disorder, predominantly inattentive type F90.0 September, Active 82605035 Problem Low back pain M54.5 September, Active 410875464 ALLERGIES Substance Reaction Event Type Date Status KNEE BRACE 08/31/2016 Drug Allergy Mar, Active SOCIAL HISTORY Never Assessed PLAN OF CARE Activity Details Follow Up prn Reason: VITAL SIGNS Weight 194.4 lbs 2017-03-27 Height 61 in 2017-03-27 BMI 36.73 kg/m2 2017-03-27 Temperature 97.0 degrees Fahrenheit 2017-03-27 Heart Rate 103 /min 2017-03-27 Oximetry 100 % 2017-03-27 Blood pressure systolic 131 mm Hg 2017-03-27 Blood pressure diastolic 83 mm Hg 2017-03-27 MEDICATIONS Medication Instructions Dosage Frequency Start Date End Date Duration Status Omeprazole 20MG ORAL daily 1 24h Aug, Active Cyclobenzaprine HCl 10 MG Orally one tablet twice daily 1 tablet 30 Active Tylenol Extra Strength 500MG ORAL every 6 hours 1-2 6h September, Active Wellbutrin XL 300 MG 1 Tablet ER 24HR daily ORAL Active Amitriptyline HCl 100 MG Orally Once a day at HS 1 tablet at HS 30 Active Norel AD 4-10-325 MG Orally qid 1 6h 07 days Active RESULTS No Results PROCEDURES No Known procedures IMMUNIZATIONS No Known Immunizations MEDICAL (GENERAL) HISTORY Type Description Date Medical History HM-DEPRESSION Medical History Anxiety Medical History Add Medical History Drug addiction Surgical History Partial thyroidectomy Surgical History Bowel obstruction repair Surgical History 2 c section
--- OUTSIDE RECORDS SUMMARY | 2017-07-21 13:14 | XMS REPORT ---
Author Author MACY MAE Organization [employer] Address Unknown Phone Unavailable Care Team Providers Care Puller Out Name Role Phone MACY MAE CP Unavailable Allergies No Known Allergies Problems No Known Problems Medications No Known Medications Results No Known Results Summary Purpose [employer] Submission
--- OUTSIDE RECORDS SUMMARY | 2017-07-21 13:14 | XMS REPORT ---
Author Author ABRAN BROWN [facility] Address [address] [id number] Care Team Providers Care Legal Mediator Name Role Phone ABRAN BROWN Unavailable PROBLEMS Type Condition ICD9-CM Code [id number] Code Onset Dates Condition Status SNOMED Code Problem Attention-deficit hyperactivity disorder, predominantly inattentive type F90.0 September, Active 78523177 Problem Major depressive disorder, recurrent, moderate F33.1 Aug, Active 65940831 Problem Anxiety disorder, unspecified F41.9 September, Active 984607393 Problem Personal history of peptic ulcer disease Z87.11 Aug, Active 674105630 Problem Low back pain M54.5 September, Active 150828161 Problem Nondependent tobacco use disorder 305.1 Aug, Active 545694225 Problem Depressive disorder, not elsewhere classified 311 September, Active 54688180 Problem Insomnia, unspecified 780.52 September, Active 813620226 Problem Diarrhea 787.91 Aug, Active 70589390 Problem 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.01 Nov, Active 368924037 Problem Lumbago 724.2 Aug, Active 946904289 ALLERGIES Substance Reaction Event Type Date Status KNEE BRACE 08/31/2016 Drug Allergy Feb, Active SOCIAL HISTORY Never Assessed PLAN OF CARE Activity Details Follow Up prn Reason: VITAL SIGNS Weight 185 lbs 2017-02-14 Height 61 in 2017-02-14 BMI 34.95 kg/m2 2017-02-14 Temperature 97.8 degrees Fahrenheit 2017-02-14 Heart Rate 100 /min 2017-02-14 Oximetry 100 % 2017-02-14 Blood pressure systolic 124 mm Hg 2017-02-14 Blood pressure diastolic 75 mm Hg 2017-02-14 MEDICATIONS Medication Instructions Dosage Frequency Start Date End Date Duration Status Omeprazole 20MG ORAL daily 1 24h Aug, -3 Active Tylenol Extra Strength 500MG ORAL every 6 hours 1-2 6h September, -3 Active Amitriptyline HCl 100 MG Orally q hs 1 tablet 30 day(s) Active Wellbutrin XL 150 MG 1 Tablet ER 24HR daily ORAL Active Cyclobenzaprine HCl 10 MG Orally one tablet twice daily 1 tablet twice daily 30 Active Norel AD 4-10-325 MG Orally qid 1 6h 07 days Active Amitriptyline HCl 50 MG Orally Once a day at HS 1 tablet at HS 30 Active RESULTS No Results PROCEDURES No Known procedures IMMUNIZATIONS No Known Immunizations MEDICAL (GENERAL) HISTORY Type Description Date Medical History HM-DEPRESSION Medical History Anxiety Medical History Add Medical History Drug addiction Surgical History Partial thyroidectomy Surgical History Bowel obstruction repair Surgical History 2 c section
--- OUTSIDE RECORDS SUMMARY | 2017-07-21 13:14 | XMS REPORT ---
Author Author JAI GRACE [employer] Address Unknown Phone Unavailable Care Team Providers Care Trauma Registrar Name Role Phone JAI GRACE CP Unavailable Allergies, Adverse Reactions, Alerts Substance [...]
--- OUTSIDE RECORDS SUMMARY | 2017-07-21 13:14 | XMS REPORT ---
Author Author GAB DRISCOLL Organization [facility] Address [address] [place] [address] Care Team Providers Care Stem Processing Machine Operator Name Role Phone GAB DRISCOLL Unavailable PROBLEMS Type Condition ICD9-CM Code AMJ19-II Code Onset Dates Condition Status SNOMED Code Problem History of hyperthyroidism Z86.39 Active 476024004 Problem Essential hypertension I10 Active 30520864 Problem Depressive disorder F32.9 Active 38657227 Problem Ruptured, stomach K31.89 Active 39524628 Problem Hx SBO Z87.19 Active 460011969 Problem Chronic hepatitis C without hepatic coma B18.2 Active 977697985 Problem Drug abuse F19.10 Active 44171354 ALLERGIES No Known Allergies SOCIAL HISTORY No smoking Hx information available PLAN OF CARE VITAL SIGNS MEDICATIONS Medication Instructions Dosage Frequency Start Date End Date Duration Status Acetaminophen Extra Strength 500 MG Orally every 6 hrs 2 tablet as needed 6h Active Hydrocodone-Acetaminophen 5-325 MG Orally every 6 hrs 1 tablet as needed 6h Nov, Active Bactrim DS 800-160 MG Orally Twice a day 1 tablet 12h May, Jun, Active Ibuprofen 200 mg Orally every 8 hrs as needed 2 tablets Active RESULTS No Results PROCEDURES No Known procedures IMMUNIZATIONS No Known Immunizations
--- OUTSIDE RECORDS SUMMARY | 2017-07-21 13:14 | XMS REPORT ---
Author Author RITA LYNCH [facility] [place] e[employer] Address Unknown Phone Unavailable Care Team Providers Care Test Worker Name Role Phone RITA LYNCH CP Unavailable Allergies, Adverse Reactions, Alerts Substance Reaction Event Type N.K.D.A. Info Not Available Non Drug Allergy Problems Problem Type Condition Code Onset Dates Condition Status Assessment Epigastric abdominal pain R10.13 Active Problem Unspecified essential hypertension 401.9 Active Problem [...] Instructions Start Date End Date Status Dosage Omeprazole [facility] [address]-07 20 MG Orally Once a day Mar 17, 2015 1 capsule Lisinopril-Hydrochlorothiazide [facility] [address]-68 10-12.5 mg November 12, 2012 1 tablet by Oral route 1 time per day Procedures Procedure Coding System Code Date COMPREHEN METABOLIC PANEL CPT-4 50953 Mar 17, 2015 ASSAY OF AMYLASE CPT-4 56573 Mar 17, 2015 COMPLETE CBC W/AUTO DIFF WBC CPT-4 09964 Mar 17, 2015 IMMUNOASSAY,INFECTIOUS AGENT CPT-4 92228 Mar 17, 2015 ASSAY OF LIPASE CPT-4 02911 Mar 17, 2015 VENIPUNCT, ROUTINE* CPT-4 52833 Mar 17, 2015 Office Visit, Est Pt., Level 3 CPT-4 96580 Mar 17, 2015 Vital Signs Date/Time: Mar 17, 2015 Temperature 97.5 F Weight 140.2 lbs Height 61 in Pain Scale 8 1-10 Blood Pressure Diastolic 92 mmHg Blood Pressure Systolic 130 mmHg Cardiac Monitoring Heart Rate 80 bpm BMI 26.49 Index Results Name Result Date Reference Range Unit Abnormality Flag H PYLORI (IN HOUSE) AMYLASE Summary Purpose eClinicalWorks Submission
--- OUTSIDE RECORDS SUMMARY | 2017-07-21 13:15 | XMS REPORT | Continuity of Care Document ---
Author Author [facility] Address Unknown Phone Unavailable Allergies Active Description Code Type Severity Reaction Onset Reported/Identified Relationship to Patient Clinical Status Yes No Known Drug Allergies [id number] Drug Allergy Unknown N/A 11/23/2015 Medications There is no data. Problems Date Dx Coded Attending Type Code Diagnosis Diagnosed By 03/31/2010 Ot 924.00 CONTUSION OF THIGH 03/31/2010 Ot 924.20 CONTUSION OF FOOT 03/31/2010 Ot 959.12 OTH INJURY OF ABDOMEN 03/31/2010 Ot 959.6 HIP THIGH INJURY NOS 03/31/2010 Ot E000.8 OTHER EXTERNAL CAUSE STATUS 03/31/2010 Ot E816.0 LOSS CONTROL MV ACC-DRIV 03/16/2011 Ot 787.03 VOMITING ALONE 03/16/2011 Ot 789.00 ABDOMINAL PAIN, UNSPECIFIED SITE 03/16/2011 Ot 789.06 ABDOMINAL PAIN, EPIGASTRIC 11/23/2011 Ot 845.00 SPRAIN OF ANKLE NOS 11/23/2011 Ot 959.7 LOWER LEG INJURY NOS 11/23/2011 Ot E000.8 OTHER EXTERNAL CAUSE STATUS 11/23/2011 Ot E849.0 ACCIDENT IN HOME 11/23/2011 Ot E927.0 OVEREXERTION FROM SUDDEN STRENUOUS MOVEM 06/08/2012 Ot 305.20 CANNABIS ABUSE-UNSPEC 06/08/2012 Ot 682.6 CELLULITIS OF LEG 06/08/2012 Ot 787.03 VOMITING ALONE 06/08/2012 Ot 787.91 DIARRHEA 09/09/2012 CHRISTA MEZA MD Ot 070.70 UNSPECIFIED VIRAL HEPATITIS C WITHOUT HE 09/09/2012 CHRISTA MEZA MD Ot 276.8 HYPOPOTASSEMIA 09/09/2012 CHRISTA MEZA MD Ot 305.1 TOBACCO USE DISORDER 09/09/2012 CHRISTA MEZA MD Ot 305.60 COCAINE ABUSE-UNSPEC 09/09/2012 CHRISTA MEZA MD Ot 305.70 AMPHETAMINE ABUSE-UNSPEC 09/09/2012 SUSANA WAGNER, CHRISTA Mcintosh Ot 401.9 HYPERTENSION NOS 09/09/2012 SUSANA WAGNER, CHRISTA Mcintosh Ot 682.4 CELLULITIS OF HAND 09/25/2012 070.70 HEPATITIS, C VIRUS 09/25/2012 244.9 HYPOTHYROIDISM 09/25/2012 305.90 UNSPECIFIED PSYCHOACTIVE SUBSTANCE ABUSE 09/25/2012 311 depression 09/25/2012 070.70 HEPATITIS, C VIRUS 09/25/2012 244.9 HYPOTHYROIDISM 09/25/2012 305.90 UNSPECIFIED PSYCHOACTIVE SUBSTANCE ABUSE 09/25/2012 311 depression 09/25/2012 JASMINA DDS, JASON Dayna 070.70 HEPATITIS, C VIRUS 09/25/2012 JASMINA DDS, JASON Dayna 244.9 HYPOTHYROIDISM 09/25/2012 JASMINA DDS, JASON Dayna 305.90 UNSPECIFIED PSYCHOACTIVE SUBSTANCE ABUSE 09/25/2012 JASMINA DDS, JASON Mcintosh 311 depression 10/25/2012 477.9 ALLERGIC RHINITIS CAUSE UNSPECIFIED 10/25/2012 JASMINA DDS, JASON Dayna 477.9 ALLERGIC RHINITIS CAUSE UNSPECIFIED 11/12/2012 JASMINA DDS, JASON Dayna 401.9 UNSPECIFIED ESSENTIAL HYPERTENSION 03/17/2015 CHUCK AGUERO Ot F17.210 NICOTINE DEPENDENCE, CIGARETTES, UNCOMPL 03/17/2015 CHUCK AGUERO Ot K29.70 GASTRITIS, UNSPECIFIED, WITHOUT BLEEDING 03/17/2015 CHUCK AGUERO Ot K52.9 NONINFECTIVE GASTROENTERITIS AND COLITIS 03/17/2015 CHUCK AGUERO Ot N83.20 UNSPECIFIED OVARIAN CYSTS 06/25/2015 ISLVA NUÑEZ 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 Ot F17.210 NICOTINE DEPENDENCE, CIGARETTES, UNCOMPL 06/25/2015 SILVA NUÑEZ 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 Ot K52.9 NONINFECTIVE GASTROENTERITIS AND COLITIS 06/25/2015 SILVA NUÑEZ 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 Ot N83.20 UNSPECIFIED OVARIAN CYSTS 08/18/2015 ELY MOJICA DO Ot A41.9 08/18/2015 ELY MOJICA DO Ot F15.10 08/18/2015 ELY MOJICA DO Ot I10 08/18/2015 ELY MOJICA DO Ot J45.909 08/18/2015 MOJICA DO, ELY D Ot K63.1 08/18/2015 HARTWICK DO, ELY D Ot R18.8 08/19/2015 MOJICA DO, ELY D Ot A41.9 08/19/2015 MOJICA DO, ELY D Ot F15.10 08/19/2015 MOJICA DO, ELY D Ot I10 08/19/2015 MOJICA DO, ELY D Ot J45.909 08/19/2015 MOJICA DO ELY D Ot K63.1 08/19/2015 MOJICA DO, ELY D Ot R18.8 08/19/2015 HARTWICK DO, ELY D Ot A41.9 08/19/2015 HARTWICK DO ELY D Ot F15.10 08/19/2015 MOJICA DOELY D Ot I10 08/19/2015 HARTWICK DOELY D Ot J45.909 08/19/2015 HARTWICK DORADHATT D Ot K63.1 08/19/2015 HARTWICK DOELY D Ot R18.8 08/19/2015 HARTWICK DOELY D Ot A41.9 08/19/2015 HARTWICK DOELY D Ot F15.10 08/19/2015 HARTWICK DORADHATT D Ot I10 08/19/2015 HARTWICK DOELY D Ot J45.909 08/19/2015 HARTWICK DOELY D Ot K63.1 08/19/2015 HARTWICK DORADHATT D Ot R18.8 08/20/2015 HARTWICK DOELY D Ot A41.9 SEPSIS, UNSPECIFIED ORGANISM 08/20/2015 MOJICA ELY STARK Ot F15.10 OTHER STIMULANT ABUSE, UNCOMPLICATED 08/20/2015 HARTWICK DORADHATT D Ot I10 ESSENTIAL (PRIMARY) HYPERTENSION 08/20/2015 HARTWICK DOELY D Ot J45.909 UNSPECIFIED ASTHMA, UNCOMPLICATED 08/20/2015 MOJICA ELY STARK D Ot K63.1 PERFORATION OF INTESTINE (NONTRAUMATIC) 08/20/2015 HARTWICK DOELY D Ot R18.8 OTHER ASCITES 08/21/2015 MOJICA DOELY D Ot A41.9 SEPSIS, UNSPECIFIED ORGANISM 08/21/2015 MOJICA ELY STARK D Ot F15.10 OTHER STIMULANT ABUSE, UNCOMPLICATED 08/21/2015 MOJICA DO, ELY D Ot I10 ESSENTIAL (PRIMARY) HYPERTENSION 08/21/2015 MOJICA DO, ELY D Ot J45.909 UNSPECIFIED ASTHMA, UNCOMPLICATED 08/21/2015 MOJICA DO, ELY D Ot K63.1 PERFORATION OF INTESTINE (NONTRAUMATIC) 08/21/2015 MOJICA DO, ELY D Ot R18.8 OTHER ASCITES 08/22/2015 MOJICA DO, ELY D Ot A41.9 SEPSIS, UNSPECIFIED ORGANISM 08/22/2015 MOJICA DO, ELY D Ot F15.10 OTHER STIMULANT ABUSE, UNCOMPLICATED 08/22/2015 MOJICA DO, ELY D Ot I10 ESSENTIAL (PRIMARY) HYPERTENSION 08/22/2015 MOJICA DO ELY D Ot J45.909 UNSPECIFIED ASTHMA, UNCOMPLICATED 08/22/2015 MOJICA DO, ELY D Ot K63.1 PERFORATION OF INTESTINE (NONTRAUMATIC) 08/22/2015 MOJICA DO ELY D Ot R18.8 OTHER ASCITES 08/22/2015 MOJICA DO, ELY D Ot A41.9 SEPSIS, UNSPECIFIED ORGANISM 08/22/2015 MOJICA DO, ELY D Ot F15.10 OTHER STIMULANT ABUSE, UNCOMPLICATED 08/22/2015 MOJICA DO, ELY D Ot I10 ESSENTIAL (PRIMARY) HYPERTENSION 08/22/2015 MOJICA DO ELY D Ot J45.909 UNSPECIFIED ASTHMA, UNCOMPLICATED 08/22/2015 MOJICA DO, ELY D Ot K63.1 PERFORATION OF INTESTINE (NONTRAUMATIC) 08/22/2015 MOJICA DO ELY D Ot R18.8 OTHER ASCITES 08/23/2015 MOJICA DO ELY D Ot A41.9 SEPSIS, UNSPECIFIED ORGANISM 08/23/2015 MOJICA DO ELY D Ot F15.10 OTHER STIMULANT ABUSE, UNCOMPLICATED 08/23/2015 MOJICA DO, ELY D Ot I10 ESSENTIAL (PRIMARY) HYPERTENSION 08/23/2015 MOJICA DO ELY D Ot J45.909 UNSPECIFIED ASTHMA, UNCOMPLICATED 08/23/2015 MOJICA DO, ELY D Ot K63.1 PERFORATION OF INTESTINE (NONTRAUMATIC) 08/23/2015 MOJICA DO, ELY D Ot R18.8 OTHER ASCITES 08/24/2015 MOJICA DO, ELY D Ot A41.9 SEPSIS, UNSPECIFIED ORGANISM 08/24/2015 RADHA MOJICA DOTT D Ot F15.10 OTHER STIMULANT ABUSE, UNCOMPLICATED 08/24/2015 RADHA MOJICA DOTT D Ot I10 ESSENTIAL (PRIMARY) HYPERTENSION 08/24/2015 ELY MOJICA DO Ot J45.909 UNSPECIFIED ASTHMA, UNCOMPLICATED 08/24/2015 ELY MOJICA DO D Ot K63.1 PERFORATION OF INTESTINE (NONTRAUMATIC) 08/24/2015 ELY MOJICA DO Ot R18.8 OTHER ASCITES 08/25/2015 RADHA MOJICA DOTT D Ot A41.9 SEPSIS, UNSPECIFIED ORGANISM 08/25/2015 RADHA MOJICA DOTT Surjit Ot F15.10 OTHER STIMULANT ABUSE, UNCOMPLICATED 08/25/2015 ELY MOJICA DO Ot I10 ESSENTIAL (PRIMARY) HYPERTENSION 08/25/2015 ELY MOJICA DO Ot J45.909 UNSPECIFIED ASTHMA, UNCOMPLICATED 08/25/2015 ELY MOJICA DO Ot K63.1 PERFORATION OF INTESTINE (NONTRAUMATIC) 08/25/2015 ELY MOJICA DO Ot R18.8 OTHER ASCITES 08/25/2015 ELY MOJICA DO Ot A41.9 SEPSIS, UNSPECIFIED ORGANISM 08/25/2015 ELY MOJICA DO Ot B19.20 UNSPECIFIED VIRAL HEPATITIS C WITHOUT HE 08/25/2015 ELY MOJICA DO Ot D64.9 ANEMIA, UNSPECIFIED 08/25/2015 ELY MOJICA DO Ot E03.9 HYPOTHYROIDISM, UNSPECIFIED 08/25/2015 ELY MOJICA DO Ot F15.10 OTHER STIMULANT ABUSE, UNCOMPLICATED 08/25/2015 ELY MOJICA DO Ot F17.210 NICOTINE DEPENDENCE, CIGARETTES, UNCOMPL 08/25/2015 RADHA MOJICA DOTT D Ot I10 ESSENTIAL (PRIMARY) HYPERTENSION 08/25/2015 ELY MOJICA DO Ot J45.909 UNSPECIFIED ASTHMA, UNCOMPLICATED 08/25/2015 ELY MOJICA DO Ot K25.9 GASTRIC ULCER, UNSP ACUTE OR CHRONIC, 08/25/2015 ELY MOJICA DO Ot K63.1 PERFORATION OF INTESTINE (NONTRAUMATIC) 08/25/2015 ELY MOJICA DO Ot R18.8 OTHER ASCITES 09/05/2015 MOJICA DO, ELY D Ot E05.90 THYROTOXICOSIS, UNSP WITHOUT THYROTOXIC 09/05/2015 MOJICA DO, ELY D Ot E89.0 POSTPROCEDURAL HYPOTHYROIDISM 09/05/2015 MOJICA DO, ELY D Ot F15.10 OTHER STIMULANT ABUSE, UNCOMPLICATED 09/05/2015 MOJICA DO, ELY D Ot F17.210 NICOTINE DEPENDENCE, CIGARETTES, UNCOMPL 09/05/2015 MOJICA DO, ELY D Ot I10 ESSENTIAL (PRIMARY) HYPERTENSION 09/05/2015 MOJICA DO, ELY D Ot K29.70 GASTRITIS, UNSPECIFIED, WITHOUT BLEEDING 09/05/2015 MOJICA DO, ELY D Ot K91.3 POSTPROCEDURAL INTESTINAL OBSTRUCTION 09/06/2015 MOJICA DO ELY D Ot E05.90 THYROTOXICOSIS, UNSP WITHOUT THYROTOXIC 09/06/2015 MOJICA DO, ELY D Ot E89.0 POSTPROCEDURAL HYPOTHYROIDISM 09/06/2015 MOJICA DO, ELY D Ot F15.10 OTHER STIMULANT ABUSE, UNCOMPLICATED 09/06/2015 MOJICA DO, ELY D Ot F17.210 NICOTINE DEPENDENCE, CIGARETTES, UNCOMPL 09/06/2015 MOJICA DO, ELY D Ot I10 ESSENTIAL (PRIMARY) HYPERTENSION 09/06/2015 MOJICA DO, ELY D Ot K29.70 GASTRITIS, UNSPECIFIED, WITHOUT BLEEDING 09/06/2015 MOJICA DO ELY D Ot K91.3 POSTPROCEDURAL INTESTINAL OBSTRUCTION 09/08/2015 MOJICA DO ELY D Ot D62 ACUTE POSTHEMORRHAGIC ANEMIA 09/08/2015 MOJICA DO ELY D Ot E05.90 THYROTOXICOSIS, UNSP WITHOUT THYROTOXIC 09/08/2015 MOJICA DO, ELY D Ot E89.0 POSTPROCEDURAL HYPOTHYROIDISM 09/08/2015 MOJICA DO, ELY D Ot F15.10 OTHER STIMULANT ABUSE, UNCOMPLICATED 09/08/2015 MOJICA DO, ELY D Ot F17.210 NICOTINE DEPENDENCE, CIGARETTES, UNCOMPL 09/08/2015 MOJICA DO, ELY D Ot I10 ESSENTIAL (PRIMARY) HYPERTENSION 09/08/2015 MOJICA DO, ELY D Ot K29.70 GASTRITIS, UNSPECIFIED, WITHOUT BLEEDING 09/08/2015 MOJICA DO, ELY D Ot K91.3 POSTPROCEDURAL INTESTINAL OBSTRUCTION 11/11/2015 BRUNO SERJIO STRAK Ot F17.210 NICOTINE DEPENDENCE, CIGARETTES, UNCOMPL 11/11/2015 BRUNO SERJIO STARK Ot K31.9 DISEASE OF STOMACH AND DUODENUM, UNSPECI 11/11/2015 BRUNO VESNA STARKA K Ot N32.89 OTHER SPECIFIED DISORDERS OF BLADDER 11/11/2015 BRUNO VESNA STARKA K Ot R10.10 UPPER ABDOMINAL PAIN, UNSPECIFIED 11/11/2015 BRUNO SERJIO STARK Ot R93.3 ABNORMAL FINDINGS ON DX IMAGING OF PRT D 11/12/2015 SERJIO CARR DO K Ot F17.210 NICOTINE DEPENDENCE, CIGARETTES, UNCOMPL 11/12/2015 BRUNO SERJIO STARK K Ot K31.9 DISEASE OF STOMACH AND DUODENUM, UNSPECI 11/12/2015 BRUNO VESNA STARKA K Ot N32.89 OTHER SPECIFIED DISORDERS OF BLADDER 11/12/2015 BRUNO SERJIO STARK Ot R10.10 UPPER ABDOMINAL PAIN, UNSPECIFIED 11/12/2015 BRUNO SERJIO STARK Ot R93.3 ABNORMAL FINDINGS ON DX IMAGING OF PRT D 11/23/2015 MOJICA ELY STARK Ot Z01.818 ENCOUNTER FOR OTHER PREPROCEDURAL EXAMIN 11/23/2015 MOJICA DO ELY Surjit Ot K31.9 DISEASE OF STOMACH AND DUODENUM, UNSPECI 11/23/2015 MOJICA DO ELY Surjit Ot K44.9 DIAPHRAGMATIC HERNIA WITHOUT OBSTRUCTION 11/25/2015 MOJICA ELY Surjit Ot K31.9 DISEASE OF STOMACH AND DUODENUM, UNSPECI 11/25/2015 MOJICA DOELY Ot K44.9 DIAPHRAGMATIC HERNIA WITHOUT OBSTRUCTION 06/01/2016 ELY MOJICA DO Ot Z01.818 ENCOUNTER FOR OTHER PREPROCEDURAL EXAMIN 06/01/2016 SILVA NUÑEZ APRN Ot F17.210 NICOTINE DEPENDENCE, CIGARETTES, UNCOMPL 06/01/2016 SILVA NUÑEZ 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 Ot I10 ESSENTIAL (PRIMARY) HYPERTENSION 06/01/2016 SILVA NUÑEZ 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 Ot N76.2 ACUTE VULVITIS 06/01/2016 SILVA NUÑEZ 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 Ot N76.4 ABSCESS OF VULVA 06/01/2016 SILVA NUÑEZ APRN Ot Z79.899 OTHER CRIMINAL JUSTICE FACULTY (CURRENT) DRUG THERAPY 06/02/2016 ELY MOJICA DO Ot Z01.818 ENCOUNTER FOR OTHER PREPROCEDURAL EXAMIN 06/02/2016 ELY MOJICA DO Ot Z01.818 ENCOUNTER FOR OTHER PREPROCEDURAL EXAMIN 06/05/2016 ROBSON ONEAL DO Ot A41.9 SEPSIS, UNSPECIFIED ORGANISM 06/05/2016 ROBSON ONEAL DO Ot 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, UNSPECIFIED 06/05/2016 ROBSON ONEAL DO Ot D50.9 IRON DEFICIENCY ANEMIA, UNSPECIFIED 06/05/2016 ROBSON ONEAL DO Ot E03.9 HYPOTHYROIDISM, UNSPECIFIED 06/05/2016 ROBSON ONEAL DO Ot F17.210 NICOTINE DEPENDENCE, CIGARETTES, UNCOMPL 06/05/2016 ROBSON ONEAL DO Ot F41.9 ANXIETY DISORDER, UNSPECIFIED 06/05/2016 ROBSON ONEAL DO Ot I10 ESSENTIAL (PRIMARY) HYPERTENSION 06/05/2016 ROBSON ONEAL DO Ot J45.909 UNSPECIFIED ASTHMA, UNCOMPLICATED 06/05/2016 ROBSON ONEAL DO Ot K21.9 GASTRO-ESOPHAGEAL REFLUX DISEASE WITHOUT 06/05/2016 ROBSON ONEAL DO Ot L03.314 CELLULITIS OF GROIN 06/05/2016 ROBSON ONEAL DO Ot N76.2 ACUTE VULVITIS Procedures Code Description [place] [address] ROUTINE VENIPUNCTURE 10/23/2012 68066 URINE DRUG SCREEN (IN-HOUSE ) 10/23/2012 10118 CBC 10/23/2012 78357 CMP 10/23/2012 9203613 GFR CALC (RESULT ONLY) 10/23/2012 92916 TSH 10/23/2012 06558 T4 FREE 10/23/2012 25404 HEP B SURFACE ANTIGEN (RML) 10/23/2012 26045 HEP A ANTIBODY, IGM (RML) 10/23/2012 10530 PT/INR 10/23/2012 48819 HEP B SURFACE ANTIBODY 10/24/2012 39236 HIV ANTIBODIES (RML) 10/24/2012 53060 HEP C PCR QUANT W/CHELY 10/28/2012 [id number] EXCISION OF STOMACH, OPEN APPROACH, DIAG 08/17/2015 [id number] REPAIR STOMACH, OPEN APPROACH 08/17/2015 [id number] INSERTION OF INFUSION DEV INTO SUP VENA 06/02/2016 Results Test Result Range Complete blood count (CBC) with automated white blood cell (WBC) differential - 06/02/16 07:40 Blood leukocytes automated count (number/volume) 20.6 10*3/uL 4.3-11.0 Blood erythrocytes automated count (number/volume) 3.53 10*6/uL 4.35-5.85 Venous blood hemoglobin measurement (mass/volume) 9.2 g/dL 11.5-16.0 Blood hematocrit (volume fraction) 28 % 35-52 Automated erythrocyte mean corpuscular volume 78 [foz_us] 80-99 Automated erythrocyte mean corpuscular hemoglobin (mass per erythrocyte) 26 pg 25-34 Automated erythrocyte mean corpuscular hemoglobin concentration measurement ( mass/volume) 34 g/dL 32-36 Automated erythrocyte distribution width ratio 14.7 % 10.0-14.5 Automated blood platelet count (count/volume) 360 10*3/uL 130-400 Automated blood platelet mean volume measurement 8.1 [foz_us] 7.4-10.4 Automated blood neutrophils/100 leukocytes 79 % 42-75 Automated blood lymphocytes/100 leukocytes 10 % 12-44 Blood monocytes/100 leukocytes 11 % 0-12 Automated blood eosinophils/100 leukocytes 1 % 0-10 Automated blood basophils/100 leukocytes 0 % 0-10 Blood neutrophils automated count (number/volume) 16.2 10*3 1.8-7.8 Blood lymphocytes automated count (number/volume) 2.0 10*3 1.0-4.0 Blood monocytes automated count (number/volume) 2.2 10*3 0.0-1.0 Automated eosinophil count 0.2 10*3/uL 0.0-0.3 Automated blood basophil count (count/volume) 0.0 10*3/uL 0.0-0.1 Blood manual differential performed detection - 06/02/16 07:40 Blood monocytes/100 leukocytes 8 % NRG Manual blood segmented neutrophils/100 leukocytes 76 % NRG Blood band neutrophils/100 leukocytes 5 % NRG Manual blood lymphocytes/100 leukocytes 11 % NRG Blood erythrocyte morphology finding identification NORMAL NR Comprehensive metabolic panel - 06/02/16 07:40 Serum or plasma sodium measurement (moles/volume) 132 mmol/L 135-145 Serum or plasma potassium measurement (moles/volume) 3.8 mmol/L 3.6-5.0 Serum or plasma chloride measurement (moles/volume) 104 mmol/L 98-107 Carbon dioxide 17 mmol/L 21-32 Serum or plasma anion gap determination (moles/volume) 11 mmol/L 5-14 Serum or plasma urea nitrogen measurement (mass/volume) 23 mg/dL 7-18 Serum or plasma creatinine measurement (mass/volume) 0.85 mg/dL 0.60-1.30 Serum or plasma urea nitrogen/creatinine mass ratio 27 NRG Serum or plasma creatinine measurement with calculation of estimated glomerular filtration rate > NRG Serum or plasma glucose measurement (mass/volume) 101 mg/dL 70-105 Serum or plasma calcium measurement (mass/volume) 8.8 mg/dL 8.5-10.1 Serum or plasma total bilirubin measurement (mass/volume) 0.2 mg/dL 0.1-1.0 Serum or plasma alkaline phosphatase measurement (enzymatic activity/volume) 79 U/L 40-136 Serum or plasma aspartate aminotransferase measurement (enzymatic activity/ volume) 28 U/L 5-34 Serum or plasma alanine aminotransferase measurement (enzymatic activity/volume ) 51 U/L 0-55 Serum or plasma protein measurement (mass/volume) 7.2 g/dL 6.4-8.2 Serum or plasma albumin measurement (mass/volume) 3.8 g/dL 3.2-4.5 Bacterial blood culture - 06/02/16 08:15 Bacterial blood culture NG NRG Complete urinalysis with reflex to culture - 06/02/16 08:25 Urine color determination YELLOW NRG Urine clarity determination CLEAR NRG Urine pH measurement by test strip 8 5-9 Specific gravity of urine by test strip 1.010 1.016- 1.022 Urine protein assay by test strip, semi-quantitative NEGATIVE NEGATIVE Urine glucose detection by automated test strip NEGATIVE NEGATIVE Erythrocytes detection in urine sediment by light microscopy 1+ NEGATIVE Urine ketones detection by automated test strip NEGATIVE NEGATIVE Urine nitrite detection by test strip NEGATIVE NEGATIVE Urine total bilirubin detection by test strip 1+ NEGATIVE Urine urobilinogen measurement by automated test strip (mass/volume) 1 mg/dL NORMAL Urine leukocyte esterase detection by dipstick 2+ NEGATIVE Automated urine sediment erythrocyte count by microscopy (number/high power field) NONE NRG Automated urine sediment leukocyte count by microscopy (number/high power field ) [HPF] NRG Bacteria detection in urine sediment by light microscopy TRACE NRG Squamous epithelial cells detection in urine sediment by light microscopy 5-10 NRG Crystals detection in urine sediment by light microscopy NONE NRG Casts detection in urine sediment by light microscopy NONE NRG Mucus detection in urine sediment by light microscopy NEGATIVE NRG Complete urinalysis with reflex to culture NO NRG Urine Trichomonas species detection by light microscopy MODERATE NRG Blood lactic acid measurement (moles/volume) - 06/02/16 08:53 Blood lactic acid measurement (moles/volume) 0.9 mmol/L 0.5-2.0 Bacterial blood culture - 06/02/16 08:53 Bacterial blood culture NG NRG Blood CBC with ordered manual differential panel - 06/03/16 05:00 Blood leukocytes automated count (number/volume) 11.3 10*3/uL 4.3-11.0 Blood erythrocytes automated count (number/volume) 3.03 10*6/uL 4.35-5.85 Venous blood hemoglobin measurement (mass/volume) 7.8 g/dL 11.5-16.0 Blood hematocrit (volume fraction) 24 % 35-52 Automated erythrocyte mean corpuscular volume 79 [foz_us] 80-99 Automated erythrocyte mean corpuscular hemoglobin (mass per erythrocyte) 26 pg 25-34 Automated erythrocyte mean corpuscular hemoglobin concentration measurement ( mass/volume) 33 g/dL 32-36 Automated erythrocyte distribution width ratio 14.8 % 10.0-14.5 Automated blood platelet count (count/volume) 276 10*3/uL 130-400 Automated blood platelet mean volume measurement 8.5 [foz_us] 7.4-10.4 Automated blood neutrophils/100 leukocytes 70 % 42-75 Automated blood lymphocytes/100 leukocytes 17 % 12-44 Blood monocytes/100 leukocytes 6 % NRG Automated blood eosinophils/100 leukocytes 3 % 0-10 Automated blood basophils/100 leukocytes 0 % 0-10 Blood neutrophils automated count (number/volume) 7.9 10*3 1.8-7.8 Blood lymphocytes automated count (number/volume) 2.0 10*3 1.0-4.0 Blood monocytes automated count (number/volume) 1.1 10*3 0.0-1.0 Automated eosinophil count 0.4 10*3/uL 0.0-0.3 Automated blood basophil count (count/volume) 0.0 10*3/uL 0.0-0.1 Manual blood segmented neutrophils/100 leukocytes 74 % NRG Blood band neutrophils/100 leukocytes 0 % NRG Manual blood lymphocytes/100 leukocytes 20 % NRG Manual eosinophils/100 leukocytes in nose 0 % NRG Manual blood basophils/100 leukocytes 0 % NRG Blood anisocytosis detection by light microscopy SLIGHT NRG Blood hypochromia detection by light microscopy SLIGHT NRG Blood microcytes detection by light microscopy SLIGHT NRG Comprehensive metabolic panel - 06/03/16 05:00 Serum or plasma sodium measurement (moles/volume) 136 mmol/L 135-145 Serum or plasma potassium measurement (moles/volume) 4.0 mmol/L 3.6-5.0 Serum or plasma chloride measurement (moles/volume) 112 mmol/L 98-107 Carbon dioxide 19 mmol/L 21-32 Serum or plasma anion gap determination (moles/volume) 5 mmol/L 5-14 Serum or plasma urea nitrogen measurement (mass/volume) 19 mg/dL 7-18 Serum or plasma creatinine measurement (mass/volume) 0.79 mg/dL 0.60-1.30 Serum or plasma urea nitrogen/creatinine mass ratio 24 NRG Serum or plasma creatinine measurement with calculation of estimated glomerular filtration rate > NRG Serum or plasma glucose measurement (mass/volume) 88 mg/dL 70-105 Serum or plasma calcium measurement (mass/volume) 8.0 mg/dL 8.5-10.1 Serum or plasma total bilirubin measurement (mass/volume) < mg/dL 0.1-1.0 Serum or plasma alkaline phosphatase measurement (enzymatic activity/volume) 74 U/L 40-136 Serum or plasma aspartate aminotransferase measurement (enzymatic activity/ volume) 20 U/L 5-34 Serum or plasma alanine aminotransferase measurement (enzymatic activity/volume ) 34 U/L 0-55 Serum or plasma protein measurement (mass/volume) 5.5 g/dL 6.4-8.2 Serum or plasma albumin measurement (mass/volume) 2.9 g/dL 3.2-4.5 Blood CBC with ordered manual differential panel - 06/04/16 05:20 Blood leukocytes automated count (number/volume) 9.4 10*3/uL 4.3-11.0 Blood erythrocytes automated count (number/volume) 2.98 10*6/uL 4.35-5.85 Venous blood hemoglobin measurement (mass/volume) 7.7 g/dL 11.5-16.0 Blood hematocrit (volume fraction) 24 % 35-52 Automated erythrocyte mean corpuscular volume 79 [foz_us] 80-99 Automated erythrocyte mean corpuscular hemoglobin (mass per erythrocyte) 26 pg 25-34 Automated erythrocyte mean corpuscular hemoglobin concentration measurement ( mass/volume) 33 g/dL 32-36 Automated erythrocyte distribution width ratio 15.1 % 10.0-14.5 Automated blood platelet count (count/volume) 315 10*3/uL 130-400 Automated blood platelet mean volume measurement 8.3 [foz_us] 7.4-10.4 Automated blood neutrophils/100 leukocytes 61 % 42-75 Automated blood lymphocytes/100 leukocytes 25 % 12-44 Blood monocytes/100 leukocytes 5 % NRG Automated blood eosinophils/100 leukocytes 5 % 0-10 Automated blood basophils/100 leukocytes 0 % 0-10 Blood neutrophils automated count (number/volume) 5.7 10*3 1.8-7.8 Blood lymphocytes automated count (number/volume) 2.3 10*3 1.0-4.0 Blood monocytes automated count (number/volume) 0.9 10*3 0.0-1.0 Automated eosinophil count 0.5 10*3/uL 0.0-0.3 Automated blood basophil count (count/volume) 0.0 10*3/uL 0.0-0.1 Manual blood segmented neutrophils/100 leukocytes 61 % NRG Blood band neutrophils/100 leukocytes 6 % NRG Manual blood lymphocytes/100 leukocytes 24 % NRG Manual eosinophils/100 leukocytes in nose 4 % NRG Blood erythrocyte morphology finding identification NORMAL [facility] Whole blood basic metabolic panel - 06/04/16 05:20 Serum or plasma sodium measurement (moles/volume) 136 mmol/L 135-145 Serum or plasma potassium measurement (moles/volume) 4.0 mmol/L 3.6-5.0 Serum or plasma chloride measurement (moles/volume) 112 mmol/L 98-107 Carbon dioxide 18 mmol/L 21-32 Serum or plasma anion gap determination (moles/volume) 6 mmol/L 5-14 Serum or plasma urea nitrogen measurement (mass/volume) 13 mg/dL 7-18 Serum or plasma creatinine measurement (mass/volume) 0.73 mg/dL 0.60-1.30 Serum or plasma urea nitrogen/creatinine mass ratio 18 NRG Serum or plasma creatinine measurement with calculation of estimated glomerular filtration rate > NRG Serum or plasma glucose measurement (mass/volume) 109 mg/dL 70-105 Serum or plasma calcium measurement (mass/volume) 8.3 mg/dL 8.5-10.1 Vancomycin trough - 06/04/16 10:25 Vancomycin trough 10.4 ug/mL 10.0-20.0 Blood CBC with ordered manual differential panel - 06/05/16 05:15 Blood leukocytes automated count (number/volume) 8.4 10*3/uL 4.3-11.0 Blood erythrocytes automated count (number/volume) 3.00 10*6/uL 4.35-5.85 Venous blood hemoglobin measurement (mass/volume) 7.8 g/dL 11.5-16.0 Blood hematocrit (volume fraction) 24 % 35-52 Automated erythrocyte mean corpuscular volume 79 [foz_us] 80-99 Automated erythrocyte mean corpuscular hemoglobin (mass per erythrocyte) 26 pg 25-34 Automated erythrocyte mean corpuscular hemoglobin concentration measurement ( mass/volume) 33 g/dL 32-36 Automated erythrocyte distribution width ratio 15.0 % 10.0-14.5 Automated blood platelet count (count/volume) 334 10*3/uL 130-400 Automated blood platelet mean volume measurement 8.2 [foz_us] 7.4-10.4 Automated blood neutrophils/100 leukocytes 52 % 42-75 Automated blood lymphocytes/100 leukocytes 30 % 12-44 Blood monocytes/100 leukocytes 4 % NRG Automated blood eosinophils/100 leukocytes 6 % 0-10 Automated blood basophils/100 leukocytes 0 % 0-10 Blood neutrophils automated count (number/volume) 4.4 10*3 1.8-7.8 Blood lymphocytes automated count (number/volume) 2.5 10*3 1.0-4.0 Blood monocytes automated count (number/volume) 1.0 10*3 0.0-1.0 Automated eosinophil count 0.5 10*3/uL 0.0-0.3 Automated blood basophil count (count/volume) 0.0 10*3/uL 0.0-0.1 Manual blood segmented neutrophils/100 leukocytes 52 % NRG Blood band neutrophils/100 leukocytes 2 % NRG Manual blood lymphocytes/100 leukocytes 41 % NRG Manual eosinophils/100 leukocytes in nose 1 % NRG Blood erythrocyte morphology finding identification NORMAL NRG Encounters ACCT No. Visit Date/Time Discharge Status Pt. Type Provider Facility Loc./Unit Complaint [id number] 11/26/2012 14:58:00 11/26/2012 23:59:59 [facility] Outpatient JASMINA JASON RENAE [id number] 10/25/2012 13:30:00 Document Registration [id number] 09/27/2012 08:21:00 Document Registration [id number] 06/02/2016 09:29:00 06/05/2016 12:00:00 DIS Inpatient ROBSON ONEAL DO Via [facility] 4TH PERIVAGINAL CELLULITIS [id number] 06/01/2016 11:40:00 06/01/2016 13:10:00 DIS Emergency SILVA NUÑEZ APRN Via [facility] ER POSS VAG ABSCESS [id number] 11/23/2015 11:05:00 11/23/2015 13:10:00 DIS Outpatient ELY MOJICA DO Via [facility] SDC HISTORY GASTRIC PERF [id number] 11/18/2015 05:51:00 11/18/2015 23:59:59 CLS Outpatient ELY MOJICA DO [facility] PREOP HISTORY GASTRIC PERF [id number] 11/11/2015 05:26:00 11/11/2015 08:58:00 DIS Emergency BRUNO DOSERJIO [facility] ER ABD PAIN [id number] 09/02/2015 11:56:00 09/08/2015 10:15:00 DIS Inpatient ELY MOJICA DO [facility] 4TH SBO [id number] 08/17/2015 21:09:00 08/25/2015 15:18:00 DIS Inpatient ELY MOJICA DO [facility] CSD PERFORATED ABDOMINAL VISCUS [id number] 06/25/2015 15:54:00 06/25/2015 18:52:00 DIS Emergency SILVA NUÑEZ 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 [facility] ER ABDOMINAL PAIN [id number] 03/17/2015 17:25:00 03/17/2015 21:01:00 DIS Emergency CHUCK AGUERO [facility] ER ABD PAIN [id number] 09/05/2012 00:22:00 09/09/2012 10:00:00 DIS Inpatient SUSANA WAGNER, CHRISTA Mcintosh [facility] 4TH CELLULITIS,SUBSTANCE ABUSE,HYPOKALEMIA [id number] 06/05/2016 09:06:00 Document Registration [id number] 06/08/2012 10:06:00 Document Registration [id number] 11/23/2011 18:54:00 Document Registration [id number] 03/16/2011 19:14:00 Document Registration [id number] 03/31/2010 01:11:00 Document Registration
[2017-07-21 14:10] LABS: BASOPHILS % (AUTO) 1 % (0-10); EOSINOPHILS # (AUTO) 0.2 10^3/uL (0.0-0.3); EOSINOPHILS % (AUTO) 2 % (0-10); HEMATOCRIT 32 % (35-52); HEMOGLOBIN 9.6 G/DL (11.5-16.0); LYMPHOCYTES # (AUTO) 3.9 X 10^3 (1.0-4.0); LYMPHOCYTES % (AUTO) 44 % (12-44); MEAN CORPUSCULAR HEMOGLOBIN 21 PG (25-34); MEAN CORPUSCULAR HGB CONC 31 G/DL (32-36); MEAN CORPUSCULAR VOLUME 70 FL (80-99); MONOCYTES % (AUTO) 11 % (0-12); NEUTROPHILS # (AUTO) 3.7 X 10^3 (1.8-7.8); NEUTROPHILS % (AUTO) 42 % (42-75); PLATELET COUNT 375 10^3/uL (130-400); RED CELL DISTRIBUTION WIDTH 16.3 % (10.0-14.5); WHITE BLOOD COUNT 8.8 10^3/uL (4.3-11.0)
[2017-07-21 14:16] LABS: BILIRUBIN,URINE NEGATIVE (NEGATIVE); CLARITY,URINE CLEAR; COLOR,URINE YELLOW; GLUCOSE, URINE (UA) NEGATIVE (NEGATIVE); KETONES,URINE NEGATIVE (NEGATIVE); LEUKOCYTE ESTERASE ,URINE 1+ (NEGATIVE); NITRITE,URINE NEGATIVE (NEGATIVE); PH,URINE 6 (5-9); PROTEIN,URINE 1+ (NEGATIVE); UROBILINOGEN,URINE NORMAL (NORMAL)
[2017-07-21 14:27] LABS: BACTERIA,URINE MODERATE /HPF; WBC,URINE 0-2 /HPF
[2017-07-21 14:27] LABS: CARBON DIOXIDE 24 MMOL/L (21-32); CHLORIDE 104 MMOL/L (98-107); POTASSIUM 4.4 MMOL/L (3.6-5.0); SODIUM 137 MMOL/L (135-145)
[2017-07-21 14:28] LABS: ALANINE AMINOTRANSFERASE 35 U/L (0-55); ALKALINE PHOSPHATASE 75 U/L (40-136); BILIRUBIN,TOTAL 0.2 MG/DL (0.1-1.0); BUN/CREATININE RATIO 27; CALCIUM 9.1 MG/DL (8.5-10.1); GFR ESTIMATED > 60; GLUCOSE 88 MG/DL (70-105); TOTAL PROTEIN 7.7 GM/DL (6.4-8.2)
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
[2017-07-21 14:29] LABS: AMPHETAMINE SCREEN, URINE POSITIVE (NEGATIVE); BENZODIAZEPINES SCREEN URINE POSITIVE (NEGATIVE); COCAINE SCREEN URINE NEGATIVE (NEGATIVE); METHAMPHETAMINE SCREEN URINE S POSITIVE (NEGATIVE)
[2017-07-21 14:30] LABS: BARBITURATE SCREEN URINE NEGATIVE (NEGATIVE); CANNABINOID SCREEN, URINE POSITIVE (NEGATIVE); METHADONE STAT NEGATIVE (NEGATIVE); OPIATE SCREEN URINE POSITIVE (NEGATIVE); OXYCODONE STAT NEGATIVE (NEGATIVE); PROPOXYPHENE STAT NEGATIVE (NEGATIVE); TRICYCLIC ANTIDEPRESSANTS SCRE NEGATIVE (NEGATIVE)
--- OUTSIDE RECORDS SUMMARY | 2017-07-21 15:19 | XMS REPORT | Continuity of Care Document ---
Author Author [facility] Address Unknown Phone Unavailable Allergies Active Description Code Type Severity Reaction Onset Reported/Identified Relationship to Patient Clinical Status Yes No Known Drug Allergies [id number] Drug Allergy Unknown N/A 11/23/2015 Medications There [...] AGUERO Ot N83.20 UNSPECIFIED OVARIAN CYSTS 06/25/2015 SILVA NUEÑZ PLATE GRAINER APPRENTICE Ot F17.210 NICOTINE DEPENDENCE, CIGARETTES, UNCOMPL 06/25/2015 SILVA NUÑEZ PLATE GRAINER APPRENTICE Ot K52.9 NONINFECTIVE GASTROENTERITIS AND COLITIS 06/25/2015 SILVA NUÑEZ PLATE GRAINER APPRENTICE Ot N83.20 UNSPECIFIED OVARIAN CYSTS 08/18/2015 ELY MOJICA DO Ot A41.9 08/18/2015 ELY MOJICA DO Ot F15.10 08/18/2015 ELY MOJICA DO Ot I10 08/18/2015 ELY MOJICA DO Ot J45.909 08/18/2015 MOJICA DO, ELY D Ot K63.1 08/18/2015 CAMAS DO, ELY D Ot R18.8 08/19/2015 MOJICA DO, ELY D Ot A41.9 08/19/2015 MOJICA DO, ELY D Ot F15.10 08/19/2015 MOJICA DO, ELY D Ot I10 08/19/2015 MOJICA DO, ELY D Ot J45.909 08/19/2015 MOJICA DO ELY D Ot K63.1 08/19/2015 MOJICA DO, ELY D Ot R18.8 08/19/2015 CAMAS DO, ELY D Ot A41.9 08/19/2015 CAMAS DO ELY D Ot F15.10 08/19/2015 MOJICA DOELY D Ot I10 08/19/2015 CAMAS DOELY D Ot J45.909 08/19/2015 CAMAS DORADHATT D Ot K63.1 08/19/2015 CAMAS DOELY D Ot R18.8 08/19/2015 CAMAS DOELY D Ot A41.9 08/19/2015 CAMAS DOELY D Ot F15.10 08/19/2015 CAMAS DORADHATT D Ot I10 08/19/2015 CAMAS DOELY D Ot J45.909 08/19/2015 CAMAS DOELY D Ot K63.1 08/19/2015 CAMAS DORADHATT D Ot R18.8 08/20/2015 CAMAS DOELY D Ot A41.9 SEPSIS, UNSPECIFIED ORGANISM 08/20/2015 MOJICA ELY STAKR Ot F15.10 OTHER STIMULANT ABUSE, UNCOMPLICATED 08/20/2015 CAMAS DORADHATT D Ot I10 ESSENTIAL (PRIMARY) HYPERTENSION 08/20/2015 CAMAS DOELY D Ot J45.909 UNSPECIFIED ASTHMA, UNCOMPLICATED 08/20/2015 MOJICA ELY STARK D Ot K63.1 PERFORATION OF INTESTINE (NONTRAUMATIC) 08/20/2015 CAMAS DOELY D Ot R18.8 OTHER ASCITES 08/21/2015 [...] I10 ESSENTIAL (PRIMARY) HYPERTENSION 09/05/2015 MOJICA DO, LEY D Ot K29.70 GASTRITIS, UNSPECIFIED, WITHOUT BLEEDING [...] K91.3 POSTPROCEDURAL INTESTINAL OBSTRUCTION 11/11/2015 BRUNO SERJIO STARK Ot F17.210 NICOTINE DEPENDENCE, CIGARETTES, UNCOMPL 11/11/2015 [...] NICOTINE DEPENDENCE, CIGARETTES, UNCOMPL 06/01/2016 SILVA NUÑEZ PLATE GRAINER APPRENTICE Ot I10 ESSENTIAL (PRIMARY) HYPERTENSION 06/01/2016 SILVA NUÑEZ PLATE GRAINER APPRENTICE Ot N76.2 ACUTE VULVITIS 06/01/2016 SILVA NUÑEZ PLATE GRAINER APPRENTICE Ot N76.4 ABSCESS OF VULVA 06/01/2016 SILVA NUÑEZ APRN Ot Z79.899 OTHER RADIO FREQUENCY ENGINEER (CURRENT) DRUG THERAPY 06/02/2016 ELY MOJICA DO [...] Procedures Code [place] [address] ROUTINE VENIPUNCTURE 10/23/2012 53977 URINE DRUG SCREEN (IN-HOUSE ) 10/23/2012 71660 CBC 10/23/2012 21200 CMP 10/23/2012 [id number] GFR CALC (RESULT ONLY) 10/23/2012 23670 TSH 10/23/2012 63477 T4 FREE 10/23/2012 60024 HEP B SURFACE ANTIGEN (RML) 10/23/2012 00432 HEP A ANTIBODY, IGM (RML) 10/23/2012 75861 PT/INR 10/23/2012 98030 HEP B SURFACE ANTIBODY 10/24/2012 81492 HIV ANTIBODIES (RML) 10/24/2012 59409 HEP C PCR QUANT W/CHELY 10/28/2012 [id number] EXCISION OF STOMACH, OPEN APPROACH, DIAG 08/17/2015 [id number] REPAIR STOMACH, OPEN APPROACH 08/17/2015 [id number] INSERTION OF INFUSION DEV INTO SUP VENA [...] NRG Blood erythrocyte morphology finding identification [facility] Whole blood basic metabolic panel - 06/04/16 [...] Status Pt. Type Provider Facility Loc./Unit Complaint [id number] 11/26/2012 14:58:00 11/26/2012 23:59:59 [facility] Outpatient JASMINA JASON RENAE [id number] 10/25/2012 13:30:00 Document Registration [id number] 09/27/2012 08:21:00 Document Registration [id number] 06/02/2016 09:29:00 06/05/2016 12:00:00 DIS Inpatient ROBSON ONEAL DO Via [facility] 4TH PERIVAGINAL CELLULITIS [id number] 06/01/2016 11:40:00 06/01/2016 13:10:00 DIS Emergency SILVA NUÑEZ APRN Via [facility] ER POSS VAG ABSCESS [id number] 11/23/2015 11:05:00 11/23/2015 13:10:00 DIS Outpatient ELY MOJICA DO Via [facility] SDC HISTORY GASTRIC PERF [id number] 11/18/2015 05:51:00 11/18/2015 23:59:59 [facility] Outpatient ELY MOJICA DO Via [facility] PREOP HISTORY GASTRIC PERF [id number] 11/11/2015 05:26:00 11/11/2015 08:58:00 DIS Emergency BRUNO DOSERJIO Via [facility] ER ABD PAIN [id number] 09/02/2015 11:56:00 09/08/2015 10:15:00 DIS Inpatient ELY MOJICA DO Via [facility] 4TH SBO [id number] 08/17/2015 21:09:00 08/25/2015 15:18:00 DIS Inpatient ELY MOJICA DO Via [facility] CSD PERFORATED ABDOMINAL VISCUS [id number] 06/25/2015 15:54:00 06/25/2015 18:52:00 DIS Emergency SILVA NUÑEZ PLATE GRAINER APPRENTICE Via [facility] ER ABDOMINAL PAIN [id number] 03/17/2015 17:25:00 03/17/2015 21:01:00 DIS Emergency CHUCK AGUERO Via [facility] ER ABD PAIN [id number] 09/05/2012 00:22:00 09/09/2012 10:00:00 DIS Inpatient SUSANA WAGNER, CHRISTA Mcintosh [facility] 4TH CELLULITIS,SUBSTANCE ABUSE,HYPOKALEMIA [id number] 06/05/2016 09:06:00 Document Registration [id number] 06/08/2012 10:06:00 Document Registration [id number] 11/23/2011 18:54:00 Document Registration [id number] 03/16/2011 19:14:00 Document Registration [id number] 03/31/2010 01:11:00 Document Registration
[2017-07-21 15:22] LABS: ACETAMINOPHEN < 10 UG/ML (10-30)
[2017-07-21] MEDS: NS IV 1000 ML 1,000 ML IV SCH ×2 (16:23→23:08)
[2017-07-21 16:59] LABS: ABG BASE EXCESS 0.7 MMOL/L (-2.5-2.5); ABG OXYGEN SATURATION 95 % (94-100); ABG PCO2 46 MMHG (35-45); ABG PH 7.36 (7.37-7.43); ABG PO2 65 MMHG (79-93); ABG TCO2 27.1 MMOL/L (21.0-31.0)
[2017-07-21 17:01] LABS: ALLENS TEST YES-POS; INSPIRED O2 ROOM AIR; PATIENT TEMP 97.5; VENTILATOR NO
[2017-07-21] MEDS: inSUlin (REGULAR) HUMAN 1 UNIT/0.01 ML (CHARGE PER UNIT) SC SCH (18:46)
[2017-07-22] VITALS (11 sets, daily range): BP systolic 94–122; BP diastolic 60–78
[2017-07-22] MEDS ORDERED: ACETAMINOPHEN 325 MG TABLET/CAPLET (TYLENOL) PO ONE (03:30)
[2017-07-22 04:09] LABS: BASOPHILS % (AUTO) 1 % (0-10); EOSINOPHILS # (AUTO) 0.1 10^3/uL (0.0-0.3); EOSINOPHILS % (AUTO) 2 % (0-10); HEMATOCRIT 28 % (35-52); HEMOGLOBIN 8.9 G/DL (11.5-16.0); LYMPHOCYTES % (AUTO) 45 % (12-44); MEAN CORPUSCULAR HEMOGLOBIN 21 PG (25-34); MEAN CORPUSCULAR HGB CONC 32 G/DL (32-36); MEAN CORPUSCULAR VOLUME 67 FL (80-99); MONOCYTES # (AUTO) 0.6 X 10^3 (0.0-1.0); MONOCYTES % (AUTO) 9 % (0-12); NEUTROPHILS # (AUTO) 2.9 X 10^3 (1.8-7.8); NEUTROPHILS % (AUTO) 44 % (42-75); PLATELET COUNT 338 10^3/uL (130-400); WHITE BLOOD COUNT 6.7 10^3/uL (4.3-11.0)
[2017-07-22 04:25] LABS: BUN/CREATININE RATIO 23; CARBON DIOXIDE 19 MMOL/L (21-32); CHLORIDE 107 MMOL/L (98-107); GFR ESTIMATED > 60; GLUCOSE 112 MG/DL (70-105); MAGNESIUM 1.5 MG/DL (1.8-2.4); PHOSPHORUS 2.4 MG/DL (2.3-4.7); POTASSIUM 3.7 MMOL/L (3.6-5.0); SODIUM 136 MMOL/L (135-145)
[2017-07-22] MEDS: inSUlin (REGULAR) HUMAN 1 UNIT/0.01 ML (CHARGE PER UNIT) SC SCH ×2 (05:28)
[2017-07-22] MEDS: MAGNESIUM 1 GM/100 ML IVPB 100 ML IV SCH ×2 (05:36→06:42)
[2017-07-22] MEDS ORDERED: MAGNESIUM 1 GM/100 ML IVPB 100 ML IV SCH (06:00)
[2017-07-22] MEDS ORDERED: KCL 20 MEQ TAB (K-DUR) PO SCH (06:00)
[2017-07-22] MEDS ORDERED: POTASSIUM CL 10MEQ/50ML IVPB 50 ML IV SCH (06:00)
[2017-07-22] MEDS ORDERED: INFLUENZA TRIvalent 2017-2018 0.5 ML/45 MCG SYR IM ONE (07:30)
[2017-07-22] MEDS: NS IV 1000 ML 1,000 ML IV SCH (08:10)
--- NOTE | 2017-07-22 09:18 | Diagnostic Imaging Report ---
INDICATION: Shortness of breath, drug overdose Portable chest 4:01 AM Heart and mediastinum are normal. Lungs are clear. There are no effusions or pneumothoraces. IMPRESSION: Negative chest Dictated by: Dictated on workstation # [id number]
[2017-07-22] MEDS ORDERED: OMEP20CA12 PO (10:10)
--- NOTE | 2017-07-22 10:27 | Discharge Instructions ---
Discharge Inst-[facility] Discharge Medications Continued Medications: Omeprazole (Omeprazole) 20 Mg Capsule. 20 MG PO DAILY, CAP Patient Instructions Goal/Follow Up Appt: Somone will call you from clinic to set up a follow up appointment with your primary and to discuss establishing with addiction treatment services at [facility]. Return to The Hospital For: Fever, confusion, dizziness Activity & Diet Discharge Diet: Regular Diet Activity as Tolerated: Yes Orders-Post D/C & Referrals Pneu Vac Indicated: Yes Copy Copies To 1: VIVI CARMEN MD, BETHANY N MD Jul 22, 2017 10:27
--- NOTE | 2017-07-22 10:28 | Discharge Summary ---
Diagnosis/Chief Complaint Date of Admission Jul 21, 2017 at 15:00 Date of Discharge Jul 22, 2017 Admission Diagnosis Admission Diagnosis Nonintentional multidrug overdose Chronic hepatitis C Microcytic anemia Discharge Diagnosis Polysubstance abuse/overdose- unintentional, is interested in outpatient treatment, will have someone call her from clinic tomorrow Chronic hepatitis C- no evidence of acute decompensation, consider treatment after substance use addressed Microcytic anemia- unknown etiology, recommend further work-up outpatient Chief Complaint/HPI Chief Complaint/HPI 36 yo female brought to ER after she was noted to be somnolent and confused at a relative's . She was able to maintain airway but did require bipap last night. This morning she is alert and oriented and denies suicidal ideation. She does not know what she took other than alprazolam and she does not remember much of yesterday. She has been through rehab in the past and has been abstinent for as long as 10 months in the past. She is interested in pursuing outpatient treatment. She did miss an appointment with her counselor this week and admits to depression and has tried multiple medications in the past with varying success. She lives with family and states they do not use substances and she has nothing at home to take before being able to get into addiction treatment services. Discharge Summary-OBS Procedures None. Discharge Physical Examination Allergies: Coded Allergies: No Known Drug Allergies (Verified , 09/02/15) Vitals & I&Os Intake and Output 07/22/17 00:00 Intake Total 1100 ml Output Total 0 ml Balance 1100 ml Vital Sign - Last 12Hours Date Time Temp Pulse Resp B/P (MAP) Pulse Ox O2 Delivery O2 Flow Rate FiO2 07/22/17 08:10 97 Room Air 07/22/17 08:10 98.4 80 16 122/75 (91) 07/22/17 03:00 2.00 Hospital Course Admitted for observation due to somnolence, no complications noted and she was alert and oriented and ready for d/c in the am. Labs Laboratory Tests 07/21/17 13:55: White Blood Count 8.8, Red Blood Count 4.50, Hemoglobin 9.6L, Hematocrit 32L, Mean Corpuscular Volume 70L, Mean Corpuscular Hemoglobin 21L, Mean Corpuscular Hemoglobin Concent 31L, Red Cell Distribution Width 16.3H, Platelet Count 375, Mean Platelet Volume 9.0, Neutrophils (%) (Auto) 42, Lymphocytes (%) (Auto) 44, Monocytes (%) (Auto) 11, Eosinophils (%) (Auto) 2, Basophils (%) (Auto) 1, Neutrophils # (Auto) 3.7, Lymphocytes # (Auto) 3.9, Monocytes # (Auto) 1.0, Eosinophils # (Auto) 0.2, Basophils # (Auto) 0.0, Sodium Level 137, Potassium Level 4.4, Chloride Level 104, Carbon Dioxide Level 24, Anion Gap 9, Blood Urea Nitrogen 19H, Creatinine 0.70, Estimat Glomerular Filtration Rate > 60, BUN/ Creatinine Ratio 27, Glucose Level 88, Calcium Level 9.1, Total Bilirubin 0.2, Aspartate Amino Transf (AST/SGOT) 53H, Alanine Aminotransferase (ALT/SGPT) 35, Alkaline Phosphatase 75, Total Protein 7.7, Albumin 4.0, Acetaminophen Level < 10L, Serum Alcohol < 10 07/21/17 14:10: Urine Color YELLOW, Urine Clarity CLEAR, Urine pH 6, Urine Specific [place] 1.020, Urine Protein 1+H, Urine Glucose (UA) NEGATIVE, Urine Ketones NEGATIVE, Urine Nitrite NEGATIVE, Urine Bilirubin NEGATIVE, Urine Urobilinogen NORMAL, Urine Leukocyte Esterase 1+H, Urine RBC (Auto) NEGATIVE, Urine RBC NONE, Urine WBC 0-2, Urine Squamous Epithelial Cells 5-10, Urine Crystals NONE, Urine Bacteria MODERATEH, Urine Casts NONE, Urine Mucus LARGEH, Urine Culture Indicated NO, Urine Opiates Screen POSITIVEH, Urine Oxycodone Screen NEGATIVE, Urine Methadone Screen NEGATIVE, Urine Propoxyphene Screen NEGATIVE, Urine Barbiturates Screen NEGATIVE, Ur Tricyclic Antidepressants Screen NEGATIVE, Urine Phencyclidine Screen NEGATIVE, Urine Amphetamines Screen POSITIVEH, Urine Methamphetamines Screen POSITIVEH, Urine Benzodiazepines Screen POSITIVEH, Urine Cocaine Screen NEGATIVE, Urine Cannabinoids Screen POSITIVEH 07/21/17 16:50: Blood Gas Puncture Site RT RAD, Blood Gas Patient Temperature 97.5, Arterial Blood pH 7.36L, Arterial Blood Partial Pressure CO2 46H, Arterial Blood Partial Pressure O2 65L, Arterial Blood HCO3 26, Arterial Blood Total CO2 27.1, Arterial Blood Oxygen Saturation 95, Arterial Blood Base Excess 0.7, Hank Test YES-POS, Blood Gas Ventilator Setting NO, Blood Gas Inspired Oxygen ROOM AIR 07/21/17 18:35: Glucometer 85 07/22/17 00:07: Glucometer 105 07/22/17 03:30: White Blood Count 6.7, Red Blood Count 4.20L, Hemoglobin 8.9L, Hematocrit 28L, Mean Corpuscular Volume 67L, Mean Corpuscular Hemoglobin 21L, Mean Corpuscular Hemoglobin Concent 32, Red Cell Distribution Width 16.0H, Platelet Count 338, Mean Platelet Volume 9.0, Neutrophils (%) (Auto) 44, Lymphocytes (%) (Auto) 45H , Monocytes (%) (Auto) 9, Eosinophils (%) (Auto) 2, Basophils (%) (Auto) 1, Neutrophils # (Auto) 2.9, Lymphocytes # (Auto) 3.0, Monocytes # (Auto) 0.6, Eosinophils # (Auto) 0.1, Basophils # (Auto) 0.0, Sodium Level 136, Potassium Level 3.7, Chloride Level 107, Carbon Dioxide Level 19L, Anion Gap 10, Blood Urea Nitrogen 14, Creatinine 0.60, Estimat Glomerular Filtration Rate > 60, BUN/ Creatinine Ratio 23, Glucose Level 112H, Calcium Level 8.0L, Phosphorus Level 2.4, Magnesium Level 1.5L Discharge Instructions to patient/family Please see electronic discharge instructions given to patient. Discharge Medications Reviewed and agree with Discharge Medication list on patient's Discharge Instruction sheet Clinical Quality Measures DVT/VTE Risk/Contraindication: Risk Factor Score Per Nursin RFS Level Per Nursing on Admit: 3=High Copy Copies To 1: VIVI CARMEN MD, BETHANY N MD Jul 22, 2017 10:28
== END 2017-07-22 12:30 | disposition home or self-care (01) ==
LOC: EDUNIT# 13:06 → ER 13:08 → ICU 15:00
PROVIDERS: ADMIT Family Medicine; ATTEND Family Medicine
DX: T40.601A Poisoning by unspecified narcotics, accidental (unintentional), initial encounter (principal); T42.4X1A Poisoning by benzodiazepines, accidental (unintentional), initial encounter; T40.7X1A Poisoning by cannabis (derivatives), accidental (unintentional), initial encounter; T43.621A Poisoning by amphetamines, accidental (unintentional), initial encounter; B18.2 Chronic viral hepatitis C; D64.9 Anemia, unspecified
CPT/HCPCS: 36415; 71045; 80048; 80053; 80306; 80320; 80329; 81000; 82805; 82962; 83735; 84100; 85025; 87081; 94660; 99283

== ENCOUNTER 2017-09-12 13:57 | Emergency (ER) | payer OTHER ==
[~2017-09-12] VITALS: Ht 154.9 cm; Wt 77.1 kg
--- OUTSIDE RECORDS SUMMARY | 2017-09-12 14:22 | XMS REPORT | Continuity of Care Document ---
Author Author [facility] of [facility] Address Unknown Phone Unavailable Allergies Active Description Code Type Severity Reaction Onset Reported/Identified Relationship to Patient Clinical Status Yes NO KNOWN ALLERGIES - NKA [id number] Drug Allergy Unknown N/A Yes NKDA N/A N/A Yes No Known Drug Allergies [id number] Drug Allergy Unknown N/A 11/23/2015 Medications Medication Packaging Start Date Stop Date Route Dosage Sig OMEPRAZOLE ORAL 08/31/2016 [facility], CYCLOBENZAPRINE HCL ORAL 201611/03/2016 [facility], TRAZODONE HCL ORAL 09/07/2016 09/18/2016 [facility], TYLENOL EXTRA STRENGTH ORAL 2016 [facility], AMITRIPTYLINE HCL ORAL 09/18/2016 [facility] , CYCLOBENZAPRINE HCL ORAL 201611/03/2016 [facility], CYCLOBENZAPRINE HCL Oral 2016 [facility], WELLBUTRIN XL ORAL 11/09/2016 [facility], AMITRIPTYLINE HCL Oral 12/06/2016 [facility] , Problems Date Dx Coded Attending Type Code [...] VOMITING ALONE 06/08/2012 Ot 787.91 DIARRHEA 09/09/2012 SUSANA WAGNER, CHRISTA Mcintosh Ot 070.70 UNSPECIFIED VIRAL HEPATITIS C WITHOUT HE 09/09/2012 CHRISTA MEZA MD Ot 276.8 HYPOPOTASSEMIA 09/09/2012 CHRISTA MEZA MD Ot 305.1 TOBACCO USE DISORDER 09/09/2012 CHRISTA MEZA MD Ot 305.60 COCAINE ABUSE-UNSPEC 09/09/2012 CHRISTA MEZA MD Ot 305.70 AMPHETAMINE ABUSE-UNSPEC 09/09/2012 CHRISTA MEZA MD Ot 401.9 HYPERTENSION NOS 09/09/2012 CHRISTA MEZA MD Ot 682.4 CELLULITIS OF HAND 09/25/2012 070.70 HEPATITIS, C VIRUS 09/25/2012 244.9 HYPOTHYROIDISM 09/25/2012 305.90 UNSPECIFIED PSYCHOACTIVE SUBSTANCE ABUSE 09/25/2012 311 depression 09/25/2012 070.70 HEPATITIS, C VIRUS 09/25/2012 244.9 HYPOTHYROIDISM 09/25/2012 305.90 UNSPECIFIED PSYCHOACTIVE SUBSTANCE ABUSE 09/25/2012 311 depression 09/25/2012 JASON FREEDMAN DDS 070.70 HEPATITIS, C VIRUS 09/25/2012 JASON FREEDMAN DDS 244.9 HYPOTHYROIDISM 09/25/2012 JASON FREEDMAN DDS 305.90 UNSPECIFIED PSYCHOACTIVE SUBSTANCE ABUSE 09/25/2012 JASON FREEDMAN DDS 311 depression 10/25/2012 477.9 ALLERGIC RHINITIS CAUSE UNSPECIFIED 10/25/2012 JASON FREEDMAN DDS 477.9 ALLERGIC RHINITIS CAUSE UNSPECIFIED 11/12/2012 JASON FREEDMAN DDS 401.9 UNSPECIFIED ESSENTIAL HYPERTENSION 03/17/2015 CHUCK AGUERO Ot F17.210 NICOTINE DEPENDENCE, CIGARETTES, UNCOMPL 03/17/2015 CHUCK AGUERO Ot K29.70 GASTRITIS, UNSPECIFIED, WITHOUT BLEEDING 03/17/2015 CHUCK AGUERO Ot K52.9 NONINFECTIVE GASTROENTERITIS AND COLITIS 03/17/2015 CHUCK AGUERO Ot N83.20 UNSPECIFIED OVARIAN CYSTS 06/25/2015 SILVA NUÑEZ SUPERVIS[employer] Ot F17.210 NICOTINE DEPENDENCE, CIGARETTES, UNCOMPL 06/25/2015 SILVA NUÑEZ SUPERVIS[employer] Ot K52.9 NONINFECTIVE GASTROENTERITIS AND COLITIS 06/25/2015 SILVA NUÑEZ SUPERVIS[employer] Ot N83.20 UNSPECIFIED OVARIAN CYSTS 08/18/2015 MOJICA DO, ELY D Ot A41.9 08/18/2015 MOJICA DO, ELY D Ot F15.10 08/18/2015 MOJIAC DO, ELY D Ot I10 08/18/2015 MOJICA DO, ELY D Ot J45.909 08/18/2015 MOJICA DO, ELY D Ot K63.1 08/18/2015 MOJICA DO, ELY D Ot R18.8 08/19/2015 MOJICA DO, ELY D Ot A41.9 08/19/2015 MOJICA DO, ELY D Ot F15.10 08/19/2015 MOJICA DO, ELY D Ot I10 08/19/2015 MOJICA DO, ELY D Ot J45.909 08/19/2015 MOJICA DO, ELY D Ot K63.1 08/19/2015 MOJICA DO, ELY D Ot R18.8 08/19/2015 MOJICA DO, ELY D Ot A41.9 08/19/2015 MOJICA DO, ELY D Ot F15.10 08/19/2015 MOJICA DO, ELY D Ot I10 08/19/2015 MOJICA DO, ELY D Ot J45.909 08/19/2015 MOJICA DO, ELY D Ot K63.1 08/19/2015 MOJICA DO, ELY D Ot R18.8 08/19/2015 MOJICA DO, ELY D Ot A41.9 08/19/2015 MOJICA DO, ELY D Ot F15.10 08/19/2015 MOJICA DO, ELY D Ot I10 08/19/2015 MOJICA DO, ELY D Ot J45.909 08/19/2015 MOJICA DO, ELY D Ot K63.1 08/19/2015 MOJICA DO, ELY D Ot R18.8 08/20/2015 MOJICA DO, ELY D Ot A41.9 SEPSIS, UNSPECIFIED ORGANISM 08/20/2015 MOJICA DO ELY D Ot F15.10 OTHER STIMULANT ABUSE, UNCOMPLICATED 08/20/2015 MOJICA DO, ELY D Ot I10 ESSENTIAL (PRIMARY) HYPERTENSION 08/20/2015 MOJICA DO ELY D Ot J45.909 UNSPECIFIED ASTHMA, UNCOMPLICATED 08/20/2015 MOJICA DO ELY D Ot K63.1 PERFORATION OF INTESTINE (NONTRAUMATIC) 08/20/2015 MOJICA DO, ELY D Ot R18.8 OTHER ASCITES 08/21/2015 MOJICA DO, ELY D Ot A41.9 SEPSIS, UNSPECIFIED ORGANISM 08/21/2015 MOJICA DO ELY D Ot F15.10 OTHER STIMULANT ABUSE, UNCOMPLICATED 08/21/2015 MOJICA DO ELY D Ot I10 ESSENTIAL (PRIMARY) HYPERTENSION 08/21/2015 RADHA MOJICA DOTT D Ot J45.909 UNSPECIFIED ASTHMA, UNCOMPLICATED 08/21/2015 RADHA MOJICA DOTT D Ot K63.1 PERFORATION OF INTESTINE (NONTRAUMATIC) 08/21/2015 MOJICA DORADHATT D Ot R18.8 OTHER ASCITES 08/22/2015 MOJICA DORADHATT D Ot A41.9 SEPSIS, UNSPECIFIED ORGANISM 08/22/2015 RADHA MOJICA DOTT D Ot F15.10 OTHER STIMULANT ABUSE, UNCOMPLICATED 08/22/2015 MOJICA RADHA STARKTT D Ot I10 ESSENTIAL (PRIMARY) HYPERTENSION 08/22/2015 RADHA MOJICA DOTT D Ot J45.909 UNSPECIFIED ASTHMA, UNCOMPLICATED 08/22/2015 RADHA MOJICA DOTT D Ot K63.1 PERFORATION OF INTESTINE (NONTRAUMATIC) 08/22/2015 MOJICA DORADHATT D Ot R18.8 OTHER ASCITES 08/22/2015 MOJICA DO ELY D Ot A41.9 SEPSIS, UNSPECIFIED ORGANISM 08/22/2015 MOJICA RADHA STARKTT D Ot F15.10 OTHER STIMULANT ABUSE, UNCOMPLICATED 08/22/2015 MOJICA DO, ELY D Ot I10 ESSENTIAL (PRIMARY) HYPERTENSION 08/22/2015 GALINA STARK ELY D Ot J45.909 UNSPECIFIED ASTHMA, UNCOMPLICATED 08/22/2015 RADHA MOJICA DOTT D Ot K63.1 PERFORATION OF INTESTINE (NONTRAUMATIC) 08/22/2015 MOJICA DO, ELY D Ot R18.8 OTHER ASCITES 08/23/2015 MOJICA DO, ELY D Ot A41.9 SEPSIS, UNSPECIFIED ORGANISM 08/23/2015 MOJICA DO, ELY D Ot F15.10 OTHER STIMULANT ABUSE, UNCOMPLICATED 08/23/2015 MOJICA DO, ELY D Ot I10 ESSENTIAL (PRIMARY) HYPERTENSION 08/23/2015 MOJICA DO, ELY D Ot J45.909 UNSPECIFIED ASTHMA, UNCOMPLICATED 08/23/2015 MOJICA DO, ELY D Ot K63.1 PERFORATION OF INTESTINE (NONTRAUMATIC) 08/23/2015 MOJICA DO ELY D Ot R18.8 OTHER ASCITES 08/24/2015 MOJICA DO, ELY D Ot A41.9 SEPSIS, UNSPECIFIED ORGANISM 08/24/2015 MOJICA DO ELY D Ot F15.10 OTHER STIMULANT ABUSE, UNCOMPLICATED 08/24/2015 MOJICA DO, ELY D Ot I10 ESSENTIAL (PRIMARY) HYPERTENSION 08/24/2015 MOJICA DORADHATT D Ot J45.909 UNSPECIFIED ASTHMA, UNCOMPLICATED 08/24/2015 MOJICA DO, ELY D Ot K63.1 PERFORATION OF INTESTINE (NONTRAUMATIC) 08/24/2015 RADHA MOJICA DOTT D Ot R18.8 OTHER ASCITES 08/25/2015 MOJICA DORADHATT D Ot A41.9 SEPSIS, UNSPECIFIED ORGANISM 08/25/2015 MOJICA DO ELY D Ot F15.10 OTHER STIMULANT ABUSE, UNCOMPLICATED 08/25/2015 MOJICA DO ELY D Ot I10 ESSENTIAL (PRIMARY) HYPERTENSION 08/25/2015 MOJICA DO ELY D Ot J45.909 UNSPECIFIED ASTHMA, UNCOMPLICATED 08/25/2015 MOJICA DO, ELY D Ot K63.1 PERFORATION OF INTESTINE (NONTRAUMATIC) 08/25/2015 MOJICA DO ELY D Ot R18.8 OTHER ASCITES 08/25/2015 MOJICA DO ELY D Ot A41.9 SEPSIS, UNSPECIFIED ORGANISM 08/25/2015 MOJICA DO ELY D Ot B19.20 UNSPECIFIED VIRAL HEPATITIS C WITHOUT HE 08/25/2015 GALINA STARK ELY D Ot D64.9 ANEMIA, UNSPECIFIED 08/25/2015 ELY MOJICA [...] MOJICA DO Ot R18.8 OTHER ASCITES 09/05/2015 ELY MOJICA DO Ot E05.90 THYROTOXICOSIS, UNSP WITHOUT THYROTOXIC 09/05/2015 ELY MOJICA DO Ot E89.0 POSTPROCEDURAL HYPOTHYROIDISM 09/05/2015 ELY MOJICA DO Ot F15.10 OTHER STIMULANT ABUSE, UNCOMPLICATED 09/05/2015 ELY MOJICA DO Ot F17.210 NICOTINE DEPENDENCE, CIGARETTES, UNCOMPL 09/05/2015 ELY MOJICA DO Ot I10 ESSENTIAL (PRIMARY) HYPERTENSION 09/05/2015 ELY MOJICA DO Ot K29.70 GASTRITIS, UNSPECIFIED, WITHOUT BLEEDING 09/05/2015 ELY MOJICA DO Ot K91.3 POSTPROCEDURAL INTESTINAL OBSTRUCTION 09/06/2015 ELY MOJICA DO Ot E05.90 THYROTOXICOSIS, UNSP WITHOUT THYROTOXIC 09/06/2015 ELY MOJICA DO Ot E89.0 POSTPROCEDURAL HYPOTHYROIDISM 09/06/2015 ELY MOJICA DO Ot F15.10 OTHER STIMULANT ABUSE, UNCOMPLICATED 09/06/2015 ELY MOJICA DO Ot F17.210 NICOTINE DEPENDENCE, CIGARETTES, UNCOMPL 09/06/2015 ELY MOJICA DO Ot I10 ESSENTIAL (PRIMARY) HYPERTENSION 09/06/2015 ELY MOJICA DO Ot K29.70 GASTRITIS, UNSPECIFIED, WITHOUT BLEEDING 09/06/2015 ELY MOJICA DO Ot K91.3 POSTPROCEDURAL INTESTINAL OBSTRUCTION 09/08/2015 ELY MOJICA DO Ot D62 ACUTE POSTHEMORRHAGIC ANEMIA 09/08/2015 ELY MOJICA DO Ot E05.90 THYROTOXICOSIS, UNSP WITHOUT THYROTOXIC 09/08/2015 ELY MOJICA DO Ot E89.0 POSTPROCEDURAL HYPOTHYROIDISM 09/08/2015 ELY MOJICA DO Ot F15.10 OTHER STIMULANT ABUSE, UNCOMPLICATED 09/08/2015 ELY MOJICA DO Ot F17.210 NICOTINE DEPENDENCE, CIGARETTES, UNCOMPL 09/08/2015 ELY MOJICA DO Ot I10 ESSENTIAL (PRIMARY) HYPERTENSION 09/08/2015 ELY MOJICA DO Ot K29.70 GASTRITIS, UNSPECIFIED, WITHOUT BLEEDING 09/08/2015 ELY MOJICA DO Ot K91.3 POSTPROCEDURAL INTESTINAL OBSTRUCTION 11/11/2015 BRUNO SERJIO STARK Ot F17.210 NICOTINE DEPENDENCE, CIGARETTES, UNCOMPL 11/11/2015 BRUNO SERJIO STARK Ot K31.9 DISEASE OF STOMACH AND DUODENUM, UNSPECI 11/11/2015 BRUNO SERJIO STARK Ot N32.89 OTHER SPECIFIED DISORDERS OF BLADDER 11/11/2015 BRUNO DO SERJIO K Ot R10.10 UPPER ABDOMINAL PAIN, UNSPECIFIED 11/11/2015 BRUNO SERJIO STARK Ot R93.3 ABNORMAL FINDINGS ON DX IMAGING OF PRT D 11/12/2015 BRUNO SERJIO STARK Ot F17.210 NICOTINE DEPENDENCE, CIGARETTES, UNCOMPL 11/12/2015 BRUNO VESNA STARKA Rachel Ot K31.9 DISEASE OF STOMACH AND DUODENUM, UNSPECI 11/12/2015 BRUNO SERJIO STARK Ot N32.89 OTHER SPECIFIED DISORDERS OF BLADDER 11/12/2015 BRUNO DO SERJIO K Ot R10.10 UPPER ABDOMINAL PAIN, UNSPECIFIED 11/12/2015 BRUNO VESNA STARKA Rachel Ot R93.3 ABNORMAL FINDINGS ON DX IMAGING OF PRT D 11/23/2015 ELY MOJICA DO Ot Z01.818 ENCOUNTER FOR OTHER PREPROCEDURAL EXAMIN 11/23/2015 ELY MOJICA DO Ot K31.9 DISEASE OF STOMACH AND DUODENUM, UNSPECI 11/23/2015 ELY MOJICA DO Ot K44.9 DIAPHRAGMATIC HERNIA WITHOUT OBSTRUCTION 11/25/2015 ELY MOJICA DO Ot K31.9 DISEASE OF STOMACH AND DUODENUM, UNSPECI 11/25/2015 ELY MOJICA DO Ot K44.9 DIAPHRAGMATIC HERNIA WITHOUT OBSTRUCTION 06/01/2016 ELY MOJICA DO Ot Z01.818 ENCOUNTER FOR OTHER PREPROCEDURAL EXAMIN 06/01/2016 SILVA NUÑEZ APRN Ot F17.210 NICOTINE DEPENDENCE, CIGARETTES, UNCOMPL 06/01/2016 SILVA NUÑEZ APRN Ot I10 ESSENTIAL (PRIMARY) HYPERTENSION 06/01/2016 SILVA NUÑEZ SUPERVIS[employer] Ot N76.2 ACUTE VULVITIS 06/01/2016 SILVA NUÑEZ [employer] Ot N76.4 ABSCESS OF VULVA 06/01/2016 SILVA NUÑEZ APRN Ot Z79.899 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 SUPERVISOR [employer] (CURRENT) DRUG THERAPY 06/02/2016 ELY MOJICA DO Ot Z01.818 ENCOUNTER FOR OTHER PREPROCEDURAL EXAMIN 06/02/2016 ELY MOJICA DO, Ot Z01.818 ENCOUNTER FOR OTHER PREPROCEDURAL EXAMIN [...] ROBSON ONEAL DO Ot N76.2 ACUTE VULVITIS 07/21/2017 ELY MOJICA DO Ot Z01.818 ENCOUNTER FOR OTHER PREPROCEDURAL EXAMIN 07/22/2017 JAI GRACE MD Ot B18.2 CHRONIC VIRAL HEPATITIS C 07/22/2017 JAI GRACE MD Ot D64.9 ANEMIA, UNSPECIFIED 07/22/2017 JAI GRACE MD Ot T40.601A POISONING BY UNSP NARCOTICS, ACCIDENTAL, 07/22/2017 JAI GRACE MD Ot T40.7X1A POISONING BY CANNABIS (DERIVATIVES), ACC 07/22/2017 JAI GRACE MD Ot T42.4X1A POISONING BY BENZODIAZEPINES, ACCIDENTAL 07/22/2017 JAI GRACE MD Ot T43.621A POISONING BY AMPHETAMINES, ACCIDENTAL (U 07/22/2017 JAI GRACE MD Ot B18.2 CHRONIC VIRAL HEPATITIS C 07/22/2017 JAI GRACE MD Ot D64.9 ANEMIA, UNSPECIFIED 07/22/2017 JAI GRACE MD Ot T40.601A POISONING BY UNSP NARCOTICS, ACCIDENTAL, 07/22/2017 JAI GRACE MD Ot T40.7X1A POISONING BY CANNABIS (DERIVATIVES), ACC 07/22/2017 JAI GRACE MD Ot T42.4X1A POISONING BY BENZODIAZEPINES, ACCIDENTAL 07/22/2017 JAI GRACE MD Ot T43.621A POISONING BY AMPHETAMINES, ACCIDENTAL (U Procedures Code Description [place] [address] ROUTINE VENIPUNCTURE 10/23/2012 78030 URINE DRUG SCREEN (IN-HOUSE ) 10/23/2012 94875 CBC 10/23/2012 52747 CMP 10/23/2012 0596684 GFR CALC (RESULT ONLY) 10/23/2012 08263 TSH 10/23/2012 57663 T4 FREE 10/23/2012 42377 HEP B SURFACE ANTIGEN (RML) 10/23/2012 01901 HEP A ANTIBODY, IGM (RML) 10/23/2012 95713 PT/INR 10/23/2012 45462 HEP B SURFACE ANTIBODY 10/24/2012 92872 HIV ANTIBODIES (RML) 10/24/2012 83137 HEP C PCR QUANT W/CHELY 10/28/2012 [id number] EXCISION OF STOMACH, OPEN APPROACH, DIAG 08/17/2015 [id number] REPAIR STOMACH, OPEN APPROACH 08/17/2015 [id number] INSERTION OF INFUSION DEV INTO SUP VENA [...] 35-52 Automated erythrocyte mean corpuscular volume 79 [[facility]] 80-99 Automated erythrocyte mean corpuscular hemoglobin (mass [...] NRG Blood erythrocyte morphology finding identification NORMAL [facility] Whole blood basic metabolic panel [...] Blood erythrocyte morphology finding identification NORMAL NRG CBC WITH DIFF - 08/31/16 14:22 FINGER STICK NO CBCWITHDIFF WBC 8.1 10^3uL 4.0 - 11.0 RBC 4.57 10^6uL 4.20 - 5.40 HEMOGLOBIN 12.0 g/dL 12.0 - 16.0 HEMATOCRIT 37.0 % 35.0 - 48.0 MCV 81.0 fl 78.0 - 95.0 MCH 26.3 pg 25.0 - 35.0 MCHC 32.4 g/dL 32.0 - 36.0 RDW 15.2 % 11.5 - 14.5 PLATELETS 406 10^3uL 130 - 400 %NEUTROPHILS 53.7 % 35.0 - 75.0 %LYMPHOCYTES 35.4 % 20.0 - 53.0 %MONOCYTES 7.9 % 0.0 - 10.0 %EOSINOPHILS 1.40 % 0.00 - 8.00 %BASOPHILS 0.40 % 0.00 - 2.00 %IG 1.20 0.00 - 0.90 #NEUTROPHILS 4.35 1.80 - 7.50 #LYMPHOCYTES 2.87 0.70 - 3.10 #MONOCYTES 0.64 0.20 - 0.90 #EOSINOPHILS 0.11 0.00 - 0.50 #BASOPHILS 0.03 0.00 - 0.10 #IG 0.10 0.00 - 0.03 MANUAL DIFF NOT INDICATED RBC MORPH NOT INDICATED COMP METABOLIC PROFILE - 08/31/16 14:22 COMPMETABOLICPROFILE FASTING SPECIMEN? NO FINGER STICK NO SODIUM 139 mmol/L 136 - 145 POTASSIUM 3.6 mmol/L 3.5 - 4.8 CHLORIDE 103 mmol/L 98 - 107 TOTAL CO2 25 mmol/L 21 - 32 GLUCOSE 145 mg/dL 65 - 110 BUN 17 mg/dL 7 - 18 CREATININE 0.8 mg/dL 0.6 - 1.0 TOTAL BILI 0.2 mg/dL 0.0 - 1.0 DIRECT BILI 0.0 mg/dL 0.0 - 0.3 INDIRECT BILI 0.2 mg/dl 0.1 - 1.0 ALKALINE PHOS 85 U/L 50 - 136 SGPT/ALT 84 U/L 12 - 78 SGOT/AST 45 U/L 15 - 45 TOTAL PROTEIN 7.7 g/dL 6.4 - 8.2 ALBUMIN 4.0 g/dL 3.4 - 5.6 CALCIUM 9.4 mg/dL 8.5 - 10.0 AGE 35 YEARS GFR 88 ml/min/1.7 eGFR >60 mL/min/1.7 GFR >60 mL/min/1.7 TSH - 08/31/16 14:22 TSH 0.56 mIU/L 0.46 - 4.68 Complete blood count (CBC) with automated white blood cell (WBC) differential - 07/21/17 13:55 Blood leukocytes automated count (number/volume) 8.8 10*3/uL 4.3-11.0 Blood erythrocytes automated count (number/volume) 4.50 10*6/uL 4.35-5.85 Venous blood hemoglobin measurement (mass/volume) 9.6 g/dL 11.5-16.0 Blood hematocrit (volume fraction) 32 % 35-52 Automated erythrocyte mean corpuscular volume 70 [foz_us] 80-99 Automated erythrocyte mean corpuscular hemoglobin (mass per erythrocyte) 21 pg 25-34 Automated erythrocyte mean corpuscular hemoglobin concentration measurement ( mass/volume) 31 g/dL 32-36 Automated erythrocyte distribution width ratio 16.3 % 10.0-14.5 Automated blood platelet count (count/volume) 375 10*3/uL 130-400 Automated blood platelet mean volume measurement 9.0 [foz_us] 7.4-10.4 Automated blood neutrophils/100 leukocytes 42 % 42-75 Automated blood lymphocytes/100 leukocytes 44 % 12-44 Blood monocytes/100 leukocytes 11 % 0-12 Automated blood eosinophils/100 leukocytes 2 % 0-10 Automated blood basophils/100 leukocytes 1 % 0-10 Blood neutrophils automated count (number/volume) 3.7 10*3 1.8-7.8 Blood lymphocytes automated count (number/volume) 3.9 10*3 1.0-4.0 Blood monocytes automated count (number/volume) 1.0 10*3 0.0-1.0 Automated eosinophil count 0.2 10*3/uL 0.0-0.3 Automated blood basophil count (count/volume) 0.0 10*3/uL 0.0-0.1 Comprehensive metabolic panel - 07/21/17 13:55 Serum or plasma sodium measurement (moles/volume) 137 mmol/L 135-145 Serum or plasma potassium measurement (moles/volume) 4.4 mmol/L 3.6-5.0 Serum or plasma chloride measurement (moles/volume) 104 mmol/L 98-107 Carbon dioxide 24 mmol/L 21-32 Serum or plasma anion gap determination (moles/volume) 9 mmol/L 5-14 Serum or plasma urea nitrogen measurement (mass/volume) 19 mg/dL 7-18 Serum or plasma creatinine measurement (mass/volume) 0.70 mg/dL 0.60-1.30 Serum or plasma urea nitrogen/creatinine mass ratio 27 NRG Serum or plasma creatinine measurement with calculation of estimated glomerular filtration rate > NRG Serum or plasma glucose measurement (mass/volume) 88 mg/dL 70-105 Serum or plasma calcium measurement (mass/volume) 9.1 mg/dL 8.5-10.1 Serum or plasma total bilirubin measurement (mass/volume) 0.2 mg/dL 0.1-1.0 Serum or plasma alkaline phosphatase measurement (enzymatic activity/volume) 75 U/L 40-136 Serum or plasma aspartate aminotransferase measurement (enzymatic activity/ volume) 53 U/L 5-34 Serum or plasma alanine aminotransferase measurement (enzymatic activity/volume ) 35 U/L 0-55 Serum or plasma protein measurement (mass/volume) 7.7 g/dL 6.4-8.2 Serum or plasma albumin measurement (mass/volume) 4.0 g/dL 3.2-4.5 Serum or plasma acetaminophen measurement (mass/volume) - 07/21/17 13:55 Serum or plasma acetaminophen measurement (mass/volume) < ug/mL 10-30 Serum or plasma ethanol measurement (mass/volume) - 07/21/17 13:55 Serum or plasma ethanol measurement (mass/volume) < mg/dL <10 Complete urinalysis with reflex to culture - 07/21/17 14:10 Urine color determination YELLOW NRG Urine clarity determination CLEAR NRG Urine pH measurement by test strip 6 5-9 Specific gravity of urine by test strip 1.020 1.016- 1.022 Urine protein assay by test strip, semi-quantitative 1+ NEGATIVE Urine glucose detection by automated test strip NEGATIVE NEGATIVE Erythrocytes detection in urine sediment by light microscopy NEGATIVE NEGATIVE Urine ketones detection by automated test strip NEGATIVE NEGATIVE Urine nitrite detection by test strip NEGATIVE NEGATIVE Urine total bilirubin detection by test strip NEGATIVE NEGATIVE Urine urobilinogen measurement by automated test strip (mass/volume) NORMAL NORMAL Urine leukocyte esterase detection by dipstick 1+ NEGATIVE Automated urine sediment erythrocyte count by microscopy (number/high power field) NONE NRG Automated urine sediment leukocyte count by microscopy (number/high power field ) [HPF] NRG Bacteria detection in urine sediment by light microscopy MODERATE NRG Squamous epithelial cells detection in urine sediment by light microscopy 5-10 NRG Crystals detection in urine sediment by light microscopy NONE NRG Casts detection in urine sediment by light microscopy NONE NRG Mucus detection in urine sediment by light microscopy LARGE NRG Complete urinalysis with reflex to culture NO NRG Urine drug screening test - 07/21/17 14:10 Urine phencyclidine detection by screening method NEGATIVE NEGATIVE Urine benzodiazepines detection by screening method POSITIVE NEGATIVE Urine cocaine detection NEGATIVE NEGATIVE Urine amphetamines detection by screening method POSITIVE NEGATIVE Urine methamphetamine detection by screening method POSITIVE NEGATIVE Urine cannabinoids detection by screening method POSITIVE NEGATIVE Urine opiates detection by screening method POSITIVE NEGATIVE Urine barbiturates detection NEGATIVE NEGATIVE Screening urine tricyclic antidepressants detection NEGATIVE NEGATIVE Urine methadone detection by screening method NEGATIVE NEGATIVE Urine oxycodone detection NEGATIVE NEGATIVE Urine propoxyphene detection NEGATIVE NEGATIVE Methicillin resistant Staphylococcus aureus (MRSA) screening culture - 16:06 Methicillin resistant Staphylococcus aureus (MRSA) screening culture NEG NRG Arterial blood gas measurement - 07/21/17 16:50 Blood pCO2 46 mm[Hg] 35-45 Blood pO2 65 mm[Hg] 79-93 Arterial blood bicarbonate measurement (moles/volume) 26 mmol/L 23-27 Arterial blood base excess by calculation 0.7 mmol/L -2.5 -2.5 Arterial blood oxygen saturation measurement 95 % 94-100 * Inhaled oxygen flow rate ROOM AIR NRG Arterial blood pH measurement with patient temperature correction 7.36 7.37-7.43 Arterial blood carbon dioxide, total measurement (moles/volume) 27.1 mmol/L 21.0-31.0 Body site RT RAD NRG Assessment of wrist artery patency prior to arterial puncture YES- POS NRG Setting of ventilation mode NO NRG Measurement of body temperature 97.5 NRG Capillary blood glucose measurement by glucometer (mass/volume) - 07/21/17 18: 35 Capillary blood glucose measurement by glucometer (mass/volume) 85 mg/dL 70-110 Capillary blood glucose measurement by glucometer (mass/volume) - 07/22/17 00: 07 Capillary blood glucose measurement by glucometer (mass/volume) 105 mg/dL 70-110 Complete blood count (CBC) with automated white blood cell (WBC) differential - 07/22/17 03:30 Blood leukocytes automated count (number/volume) 6.7 10*3/uL 4.3-11.0 Blood erythrocytes automated count (number/volume) 4.20 10*6/uL 4.35-5.85 Venous blood hemoglobin measurement (mass/volume) 8.9 g/dL 11.5-16.0 Blood hematocrit (volume fraction) 28 % 35-52 Automated erythrocyte mean corpuscular volume 67 [foz_us] 80-99 Automated erythrocyte mean corpuscular hemoglobin (mass per erythrocyte) 21 pg 25-34 Automated erythrocyte mean corpuscular hemoglobin concentration measurement ( mass/volume) 32 g/dL 32-36 Automated erythrocyte distribution width ratio 16.0 % 10.0-14.5 Automated blood platelet count (count/volume) 338 10*3/uL 130-400 Automated blood platelet mean volume measurement 9.0 [foz_us] 7.4-10.4 Automated blood neutrophils/100 leukocytes 44 % 42-75 Automated blood lymphocytes/100 leukocytes 45 % 12-44 Blood monocytes/100 leukocytes 9 % 0-12 Automated blood eosinophils/100 leukocytes 2 % 0-10 Automated blood basophils/100 leukocytes 1 % 0-10 Blood neutrophils automated count (number/volume) 2.9 10*3 1.8-7.8 Blood lymphocytes automated count (number/volume) 3.0 10*3 1.0-4.0 Blood monocytes automated count (number/volume) 0.6 10*3 0.0-1.0 Automated eosinophil count 0.1 10*3/uL 0.0-0.3 Automated blood basophil count (count/volume) 0.0 10*3/uL 0.0-0.1 Whole blood basic metabolic panel - 07/22/17 03:30 Serum or plasma sodium measurement (moles/volume) 136 mmol/L 135-145 Serum or plasma potassium measurement (moles/volume) 3.7 mmol/L 3.6-5.0 Serum or plasma chloride measurement (moles/volume) 107 mmol/L 98-107 Carbon dioxide 19 mmol/L 21-32 Serum or plasma anion gap determination (moles/volume) 10 mmol/L 5-14 Serum or plasma urea nitrogen measurement (mass/volume) 14 mg/dL 7-18 Serum or plasma creatinine measurement (mass/volume) 0.60 mg/dL 0.60-1.30 Serum or plasma urea nitrogen/creatinine mass ratio 23 NRG Serum or plasma creatinine measurement with calculation of estimated glomerular filtration rate > NRG Serum or plasma glucose measurement (mass/volume) 112 mg/dL 70-105 Serum or plasma calcium measurement (mass/volume) 8.0 mg/dL 8.5-10.1 Serum or plasma phosphate measurement (mass/volume) - 07/22/17 03:30 Serum or plasma phosphate measurement (mass/volume) 2.4 mg/dL 2.3-4.7 Magnesium - 07/22/17 03:30 Magnesium 1.5 mg/dL 1.8-2.4 Encounters ACCT No. Visit Date/Time Discharge Status Pt. Type Provider Facility Loc./Unit Complaint [id number] 11/26/2012 14:58:00 11/26/2012 23:59:59 CLS Outpatient JASON FREEDMAN DDS [id number] 10/25/2012 13:30:00 Document Registration [id number] 09/27/2012 08:21:00 Document Registration [id number] 08/31/2016 14:22:00 08/31/2016 14:22:00 DIS Outpatient FERNANDO BARRIENTOS [id number] 08/24/2016 18:02:00 08/24/2016 21:43:00 DIS Emergency RITA GUZMAN [facility] [id number] 11/14/2016 10:28:24 11/14/2016 10:28:24 DIS Outpatient [id number] 07/21/2017 15:00:00 07/22/2017 12:30:00 DIS Inpatient JAI GRACE MD [facility] ICU MULTI DRUG OVERDOSE [id number] 06/02/2016 09:29:00 06/05/2016 12:00:00 DIS Inpatient ROBSON ONEAL DO [facility] 4TH PERIVAGINAL CELLULITIS [id number] 06/01/2016 11:40:00 06/01/2016 13:10:00 DIS Emergency SILVA NUÑEZ APRN [facility] ER POSS VAG ABSCESS [id number] 11/23/2015 11:05:00 11/23/2015 13:10:00 DIS Outpatient ELY MOJICA DO [facility] SDC HISTORY GASTRIC PERF [id number] 11/18/2015 05:51:00 11/18/2015 23:59:59 CLS Outpatient ELY MOJICA DO [facility] PREOP HISTORY GASTRIC PERF [id number] 11/11/2015 05:26:00 11/11/2015 08:58:00 DIS Emergency SERJIO CARR DO [facility] ER ABD PAIN [id number] 09/02/2015 11:56:00 09/08/2015 10:15:00 DIS Inpatient MOJICA ELY STARK Surjit [facility] 4TH SBO [id number] 08/17/2015 21:09:00 08/25/2015 15:18:00 DIS Inpatient ELY MOJICA DO Surjit [facility] CSD PERFORATED ABDOMINAL VISCUS [id number] 06/25/2015 15:54:00 06/25/2015 18:52:00 DIS Emergency SILVA NUÑEZ [employer] [facility] ER ABDOMINAL PAIN [id number] 03/17/2015 17:25:00 03/17/2015 21:01:00 DIS Emergency CHUCK AGUERO [facility] ER ABD PAIN [id number] 09/05/2012 00:22:00 09/09/2012 10:00:00 DIS Inpatient SUSANA WAGNER, CHRISTA Mcintosh [facility] 4TH CELLULITIS,SUBSTANCE ABUSE,HYPOKALEMIA [id number] 06/05/2016 09:06:00 Document Registration [id number] 06/08/2012 10:06:00 Document Registration [id number] 11/23/2011 18:54:00 Document Registration [id number] 03/16/2011 19:14:00 Document Registration [id number] 03/31/2010 01:11:00 Document Registration
[2017-09-12] MEDS ORDERED: NS IV 1000 ML 1,000 ML IV ONE (15:07)
[2017-09-12 15:36] LABS: BASOPHILS % (AUTO) 0 % (0-10); EOSINOPHILS % (AUTO) 0 % (0-10); HEMATOCRIT 33 % (35-52); HEMOGLOBIN 10.4 G/DL (11.5-16.0); LYMPHOCYTES # (AUTO) 3.6 X 10^3 (1.0-4.0); LYMPHOCYTES % (AUTO) 36 % (12-44); MEAN CORPUSCULAR HEMOGLOBIN 22 PG (25-34); MEAN CORPUSCULAR HGB CONC 32 G/DL (32-36); MEAN CORPUSCULAR VOLUME 69 FL (80-99); MEAN PLATELET VOLUME 9.1 FL (7.4-10.4); MONOCYTES # (AUTO) 0.9 X 10^3 (0.0-1.0); MONOCYTES % (AUTO) 9 % (0-12); NEUTROPHILS # (AUTO) 5.5 X 10^3 (1.8-7.8); NEUTROPHILS % (AUTO) 55 % (42-75); PLATELET COUNT 397 10^3/uL (130-400); RED CELL DISTRIBUTION WIDTH 18.1 % (10.0-14.5)
[2017-09-12 16:01] LABS: ALANINE AMINOTRANSFERASE 82 U/L (0-55); ALBUMIN 4.4 GM/DL (3.2-4.5); ALKALINE PHOSPHATASE 106 U/L (40-136); BILIRUBIN,TOTAL 0.3 MG/DL (0.1-1.0); BUN/CREATININE RATIO 18; CALCIUM 9.5 MG/DL (8.5-10.1); CARBON DIOXIDE 20 MMOL/L (21-32); CHLORIDE 111 MMOL/L (98-107); CREATININE SERUM 0.66 MG/DL (0.60-1.30); GFR ESTIMATED > 60; GLUCOSE 85 MG/DL (70-105); POTASSIUM 3.4 MMOL/L (3.6-5.0); SALICYLATE < 5.0 MG/DL (5.0-20.0); SODIUM 141 MMOL/L (135-145); TOTAL PROTEIN 7.8 GM/DL (6.4-8.2)
[2017-09-12 16:17] LABS: ACETAMINOPHEN < 10 UG/ML (10-30)
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
[2017-09-12 16:39] LABS: BILIRUBIN,URINE NEGATIVE (NEGATIVE); CLARITY,URINE VERY CLOUDY; COLOR,URINE AMBER; GLUCOSE, URINE (UA) NEGATIVE (NEGATIVE); HCG,QUALITATIVE URINE NEGATIVE (NEGATIVE); KETONES,URINE NEGATIVE (NEGATIVE); LEUKOCYTE ESTERASE ,URINE 1+ (NEGATIVE); NITRITE,URINE NEGATIVE (NEGATIVE); PH,URINE 9 (5-9); PROTEIN,URINE 2+ (NEGATIVE); UROBILINOGEN,URINE NORMAL (NORMAL)
[2017-09-12 16:50] LABS: AMPHETAMINE SCREEN, URINE NEGATIVE (NEGATIVE); BARBITURATE SCREEN URINE NEGATIVE (NEGATIVE); BENZODIAZEPINES SCREEN URINE POSITIVE (NEGATIVE); CANNABINOID SCREEN, URINE POSITIVE (NEGATIVE); COCAINE SCREEN URINE NEGATIVE (NEGATIVE); METHADONE STAT NEGATIVE (NEGATIVE); METHAMPHETAMINE SCREEN URINE S POSITIVE (NEGATIVE); OPIATE SCREEN URINE NEGATIVE (NEGATIVE); OXYCODONE STAT NEGATIVE (NEGATIVE); PROPOXYPHENE STAT NEGATIVE (NEGATIVE); TRICYCLIC ANTIDEPRESSANTS SCRE NEGATIVE (NEGATIVE)
[2017-09-12 16:52] LABS: BACTERIA,URINE FEW /HPF; RBC,URINE >100 /HPF
[2017-09-12] MEDS ORDERED: ONDANSETRON 4 MG/2 ML (SDV) Z0FRAN IVP ONE (17:30)
[2017-09-12] MEDS ORDERED: ONDA8TAB13 PO (17:32)
[2017-09-12 18:05] VITALS: BP 150/93
== END 2017-09-12 18:05 | disposition home or self-care (01) ==
LOC: EDUNIT# 13:57 → ER 14:01
DX: F19.239 Other psychoactive substance dependence with withdrawal, unspecified (principal); D64.9 Anemia, unspecified; J45.909 Unspecified asthma, uncomplicated; I10 Essential (primary) hypertension; B19.20 Unspecified viral hepatitis C without hepatic coma; K21.9 Gastro-esophageal reflux disease without esophagitis; E03.9 Hypothyroidism, unspecified; F41.9 Anxiety disorder, unspecified; F32.9 Major depressive disorder, single episode, unspecified; F17.210 Nicotine dependence, cigarettes, uncomplicated; Z98.84 Bariatric surgery status; Z82.49 Family history of ischemic heart disease and other diseases of the circulatory system; Z87.19 Personal history of other diseases of the digestive system; Z90.89 Acquired absence of other organs; Z87.59 Personal history of other complications of pregnancy, childbirth and the puerperium
CPT/HCPCS: 36415; 80053; 80306; 80320; 80329; 81000; 84443; 84703; 85025; 93005; 96361; 96374